=== PATIENT | female | born 1950 | race Caucasian/White ===

== ENCOUNTER 2016-09-15 09:42 | Day surgery (SDC) | payer MEDICARE, OTHER ==
--- NOTE | 2016-09-11 16:44 | PCM.HPSURG ---
Subjective Date of Service: Sep 07, 2016 Referring Provider: Admitting Physician: Primary Care Physician: Dirk Herrera MD Attending Physician: Dirk Ornelas MD Chief Complaint SEE BELOW History of Present Illness Patient: Dulce Persaud Date of : 1950 Visit Type: Pre Op Visit Date: 09/07/2016 01:00 PM This 66 year old female presents for Preop MIS Left L3-4 Hemilami+Microdisc+ Caesar. Decompress. History of Present Illness: 1. Preop MIS Left L3-4 Hemilami+Microdisc+Caesar. Decompress Dulce Persaud is a 66 year old female referred by Primary care Provider (PCP) Dr. Dirk Feliz M.D. who presents today's date 09/07/2016 for a preoperative type of appointment concerning the decision for surgery involving minimally invasive surgery with left L3-4 partial hemilaminectomy, microdiscectomy, & bilateral lateral recess decompression secondary to a diagnosis of lumbar spinal stenosis with neurogenic claudication & radiculopathy with related complaints of severe, intractable, and debilitating lower back pain radiating left > right lower extremities with numbness, paresthesias, & weakness; worse with standing up straight and walking & better leaning forward or sitting down. This patient underwent consultation with Dr. Dirk Ornelas M.D. on 2015 documenting a L3-4 HNP, lumbar canal stenosis, with neurogenic claudication since December 2015. She first developed right leg radicular pain in an L4 and L5 distribution following a long airline fligh 11-15-2015. The right leg pain eased up over 1-2 months with medical management. She developed new problems in late December 2015, low back pain and left anterior thigh pain provoked by walking. She reports local low back pain, with radiations into the hips bilaterally with sitting. Walking causes increased low back pain, left anterior thigh pain, and a feeling of weakness in the legs. Walking is restricted to 1/2 block. She walks with a bent forward posture, leans on the shopping cart at the supermarket, and reports that the back and left leg pain ease up if she can sit for 5-10 minutes. She also gets increases low back pain from lying flat on her back and this eases up if bends her knees by propping pillows under the knees, or turns on her side and curls up. An MRI of the lumbar spine from 06-30-16 shows a large left L3-4 HNP, that tracks above the disk space along the the L3 vertebral body. She has severe spinal stenosis at the L3-4 from the disk and spondylosis. According to Dr. Dirk Ornelas M.D. the patient has disc herniation & spondylosis with symptomatic lumbar spinal stenosis indicating neurosurgical laminectomy, discectomy, & decompression. Dr. Ornelas & the patient discussed all the risks and benefits associated with procedure as well as reasonable expectations with respect to surgical outcomes & patient elected to proceed with surgery as planned. The patient denies any complete or acute loss of control of bowel or bladder function, saddle paresthesia or anesthesia. The patient has a pertinent positive past medical, surgical and social history for ileostomy, left total knee arthroplasty, morbid obesity, thyroid disorder, peripheral edema, nocturia, chronic joint pain, stress incontinence, nocturia, history of ulcerative colitis, & chronic pain management. The patient's related complaints have been a serious detriment to their happiness and activities of daily living. Having failed conservative treatment the patient presents today for their decision for surgery appointment involving minimally invasive surgery with left L3-4 partial hemilaminectomy, microdiscectomy, & bilateral lateral recess decompression for treatment of lumbar spinal stenosis with neurogenic claudication & radiculopathy; related to severe, intractable, and debilitating lower back pain radiating left > right lower extremities with numbness, paresthesias, & weakness; worse with standing up straight and walking & better leaning forward or sitting down. The procedure is scheduled to be performed by Dr. Dirk Ornelas M.D. on 2016. PERIOPERATIVE NOTE: The patient currently undergoing chronic pain management with PCP taking Percocet 5/325 mg 2 tabs every 6 hours. She also has an ileostomy status post resection surgery. We discussed the management of the device she will bring extra bags & we will pad her device appropriately during surgical positioning. The patient is reversed of 2 compression stockings but agrees to use of SCDs for DVT prophylaxis. Medical/Surgical/Interim History Reviewed, no change. Last detailed document date:09/07/2016. Family History: Reviewed, no changes. Last detailed document date:09/07/2016. Social History: Reviewed, no changes. Last detailed document date: 09/07/2016. Allergies: Ingredient Reaction Medication Name Comment WARFARIN SODIUM Rash COUMADIN SULFA (SULFONAMIDE ANTIBIOTICS) Rash LISINOPRIL Anaphylaxis CORTICOSTEROIDS (GLUCOCORTICOIDS) TRIAMTERENE POTASSIUM Potassimin Reviewed, no changes. Review of Systems System Neg/Pos Details MS Positive Back pain. Neuro Negative Dizziness, headache and seizures. Cardio Negative Chest pain, irregular heartbeat/palpitations, leg swelling and pacemaker. GI Negative Abdominal pain, constipation, diarrhea, nausea and vomiting. Psych Negative Anxiety and depression. Endocrine Negative Weight gain and weight loss. MS Negative Bone/joint symptoms and muscle weakness. Respiratory Negative Dyspnea, apnea and wheezing. Eyes Negative Double vision and vision loss. ENMT Negative Hearing loss. Negative Dysuria, urge incontinence and urinary incontinence. Constitutional Negative Chills and fever. Integumentary Negative Mrsa and rash. Rene/Lymph Negative Blood clots. Vital Signs Height Time ft in cm Last Measured Height Position % 1:02 PM 5.0 5.00 165.10 06/11/2015 Weight/BSA/BMI Time lb oz kg Context % BMI kg/m2 BSA m2 1:02 PM 258.40 117.208 dressed with shoes 43.00 2.32 Blood Pressure Time BP mm/Hg Position Side Site Method Cuff Size 1:02 PM 139/85 sitting left wrist automatic adult Temperature/Pulse/Respiration Time Temp F Temp C Temp Site Pulse/min Pattern Resp/ min 1:02 PM 98.9 37.2 77 regular Pain Scale Time Pain Score Method 1:02 PM 7/10 Numeric Pain Intensity Scale Measured By Time Measured by 1:02 PM Nydia Pena MA Physical Exam Exam Findings Details Comments WD/WN, obese female who is AO x 3, cooperative,& appears to be in NAD w/ language & speech that is intact & fluent. There is no evidence of recent or remote memory impairment. The patient's knowledge is appropriate for age & level of education w/ a pleasant affect & euthymic mood. Ambulates w/ no difficulty. NC/AT, PERRL, EOMI, w/o facial droop, hearing grossly intact, nostrils patent, oral cavity and pharynx normal. Neck supple, w/o LAD or thyromegaly. Heart reveals RRR w/o audible murmurs Lungs CTAB Abdomen has ileostomy bag Walks slowly, bent forward Neg Straight Leg Raise, Neg Patricks DTRs 2+ in LEs Motor strength is 4+/5 left heel stand, other motor groups 5/5 in the LEs Sensation is intact in LEs Pitting edema in the LEs Assessment/Plan # Detail Type Description 1. Assessment Lumbar stenosis with neurogenic claudication (M48.06). 2. Assessment Preop examination (Z01.818). Patient Plan We including your Attending Surgeon have discussed the risks and benefits associated your scheduled procedure which you have verbally acknowledged understanding including but not limited to the possibility of an outcome that we are unable to predict or was not mentioned. 1. You are scheduled for a minimally invasive surgery with left L3-4 partial hemilaminectomy, microdiscectomy, & bilateral lateral recess decompression with Dr. Dirk Ornelas M.D. at [facility] on 09/15/2016. 2. Check in time is 10 AM. Also please ignore instructions below if told otherwise by your preadmission nurse or if you do not take the medications listed below. 3. Nothing to eat after midnight the night before surgery. You may take all of your "approved" medications with small sips of water. Remember to take your a.m. hypertension medication if it is a beta angela and ends in "olol. Otherwise ask your doctor if you need to hold your a.m. hypertension medication. 4. No aspirin, ibuprofen, Naprosyn, or other NSAIDs starting 7 days prior to surgery. 5. Please stop Warfarin/Coumadin or other blood thinners such as Plavix, Aggrenox, or Xarelto 7 days prior to your surgical procedure and follow specific instructions from your prescribing provider. 6. Please stop Lovenox bridging in the morning one day prior to procedure. 7. Please stop Suboxone/Buprenorphine at least 4 days prior to procedure. 8. Go to the hospital today to get her preoperative testing done. Take the order form to the surgery desk on the second floor of the hospital, [facility] (main entrance next to the emergency entrance). I will notify you if there is any test results that require further workup prior to surgery. 9. Follow the instructions you were given today, use the cleansing cloths the night before as well as the morning of her surgery. 10. If you are prescribed inhalers, CPAP or BiPAP machines you use at home bring along with you to the hospital. 11. ONLY If you take medications for Diabetes: If you have an insulin pump continue lowest (typically night-time) basal rate into the a.m. If you do not have a pump check h your a.m. blood sugar and hold insulin if BS less than 100. If you are taking long-acting, intermediate acting (NPH) or 70/30 preparation : Take half on day of procedure. If you are taking ultra long-acting insulin such as glargine, Lantus either at night or in the a.m. continue as scheduled ( including day of surgery). If you take short acting regular insulin (insulin not delivered via pump) discontinue on day of procedure. 12. Please call if you have any questions before your surgery: [phone]. Today's instructions/counseling include(s) Pre-operative instructions given to the patient and or legal vendor representatives(s) orally and in writing. 13. Our office will contact you if there are any test results that require further workup prior to surgery. Provider Plan The patient's history and examination as well as radiological findings were reviewed with Dr. Dirk Ornelas M.D. and conveyed the patient in detail. The findings are consistent with [] and are most likely the cause of the patient 's severe, intractable, and debilitating lower back pain radiating left > right lower extremities with numbness, paresthesias, & weakness; worse with standing up straight and walking & better leaning forward or sitting down. The patient has failed extensive conservative treatment for this condition. The treatment options were discussed with the patient. The options include attempt to live with the condition, reattempt conservative treatment, try a pain management intervention / injection or consider a surgical intervention. We are not extremely optimistic that further conservative treatment, pain management intervention and/or injection will adequately resolve the patient's symptoms of severe, intractable, and debilitating lower back pain radiating left > right lower extremities with numbness, paresthesias, & weakness; worse with standing up straight and walking & better leaning forward or sitting down. Therefore we recommend minimally invasive surgery with left L3-4 partial hemilaminectomy, microdiscectomy, & bilateral lateral recess decompression. The patient was provided/offered educational materials pertaining to their diagnosis and the above discussed procedure. We discussed the risks and benefits associated with this surgery. A spine model was used to explain the nature of this type of surgery. The risk of the required anesthesia was also mentioned including but not limited to organ failure such as heart attack, pneumonia and stroke even . The risk of this type of surgery was also mentioned. Including but not limited to an unsuccessful outcome, residual symptoms, referred or radiating posterior spinal myofascial inflammatory pain or spasm, post operative instability, instrumentation failure, sensory changes, blood loss, blood clots, wound infection, spinal cord or nerve damage, CSF or lymph leak, damage to neighboring structures such as the recurrent laryngeal nerve, perforation of the esophagus or trachea, abdominal vasculature, bowel, ureter, and bladder, resulting in temporary or permanent dysfunction, even disability, paralysis, and . The recovery of this type of surgery was also mentioned. There is a 15% chance of recurrent disc herniation with a discectomy. The chances for improvement of the lumbar spinal stenosis related symptomatology at one year is 70-80%. The chances of improvement of local mechanical pain is 50%. The patient verbalized understanding all the risks and benefits, knowing that it is impossible to predict or guarantee every surgical outcome; and would like to proceed with the above discussed procedure anyways. Surgery is scheduled for 09/15/2016 The standard [facility] preoperative screening tests, medicine restrictions, and logistical protocols apply. Any preoperative testing is within normal limits to undergo the above discussed procedure unless otherwise noted in the medical record. PERIOPERATIVE NOTE: The patient currently undergoing chronic pain management with PCP taking Percocet 5/325 mg 2 tabs every 6 hours. She also has an ileostomy status post resection surgery. We discussed the management of the device she will bring extra bags & we will pad her device appropriately during surgical positioning. The patient is reversed of 2 compression stockings but agrees to use of SCDs for DVT prophylaxis. Medications (added, continued or stopped this visit): Start Date Medication Directions Stop Date 08/27/2015 [place] Thyroid 120 mg po qd Chlorophyll 200mg tablet four times a day 09/14/2016 cyclobenzaprine 5 mg tablet take 1-2 tablet by oral route every 8 hours as needed for spasm furosemide 80 mg tablet take 1 tablet by oral route every day hydroxyzine HCl 50 mg tablet take 2 tablets q 3-6 hours 09/13/2015 oxycodone-acetaminophen 5 mg-325 mg tablet take 1 tablet by oral route every 6 hours as needed 09/14/2016 Percocet 10 mg-325 mg tablet take 1 - 2 tablet by oral route every 4 - 6 hours as needed for pain Percocet 5 mg-325 mg tablet take 1 tablet by oral route every 6 hours as needed Vitamin C 1,000 mg tablet 08/27/2015 VITAMIN D3 10,000 po qd Vitamins & Minerals tablet Counseling/Educational Factors: Counseling / educational factors reviewed. Counseling / educational factors reviewed. This is a visit of 60 minutes. 50 minutes were spent counseling. This document may have been created using voice recognition software or other electronic means and may contain inadvertent window trimmer apprentice errors. Provider: Travis MARMOLEJO 09/07/2016 02:33 PM Document generated by: Travis Carrasco 09/07/2016 02:33 PM CC Providers: Dirk Herrera [address] [place] [address]- Dirk Herrera [facility] [place] [address] [address] [place] [address] w [facility]en [facility] i [place] i magdalena s . o r g Allergy Allergies: Coded Allergies: Sulfa (Sulfonamide Antibiotics) (Unverified Allergy, Severe, RASH, 08/29/15 ) lisinopril (Unverified Allergy, Severe, ANAPHYLAXIS, 08/29/15) prednisone (Unverified Allergy, Severe, RASH, ANXIETY, 08/29/15) warfarin (Verified Allergy, Severe, HIVES,RASH, 08/29/15) triamterene (Unverified Allergy, Unknown, UNKNOWN, 08/29/15) TAPE (Verified Adverse Reaction, Intermediate, rash, blisters, 09/02/15) paper taper is better unless on a long time Social History Hx Alcohol Use: No Hx Substance Use: No Hx Tobacco Use: No PMH HEENT History History of ENT Problems?: Yes HEENT History: Positive for:: Sinus Problem (seasonal allergies) TMJ (grinds, no nightguard) Denies:: Cataracts Glaucoma Hearing Problem Other HEENT Pertinent History: dental implants Cardiovascular History History of Heart Problems?: Yes Cardiovascular History: Positive for:: Edema Hypertension Denies:: Chest Pain Heart Murmur Irregular Heartbeat Pacemaker Thrombophlebitis Respiratory History of Respiratory Problem: Yes Respiratory History: Positive for:: Pneumonia (remote hx of) Denies:: Asthma COPD Emphysema Oxygen Administration Tuberculosis Use of C-PAP Machine Use of Inhalers / NEBS Neurological History Hx Neurologic Problems?: No Neurological History: Denies:: CVA Dementia Dizziness Headaches Multiple Sclerosis Parkinson's Disease Seizures Gastrointestinal History HX of GI Problems?: Yes Gastrointestinal History: Positive for:: Gastrointestinal Bleeding Rectal Bleeding (hx of UC) Denies:: Gall Bladder Disease Other GI Pertinent History: hx of ileostomy Genitourinary History Hx of Gu Problems?: Yes Genitourinary History: Denies: HX of Hemodialysis Kidney Stones Urinary Tract Infection Female/Male History Reproductive History Female: Denies: Currently ? Problems with Breasts? Skin History Skin History: Denies:: History Skin Disorders? Pressure Ulcers Musculoskeletal History Hx Musculoskeletal Problems?: Yes Musculoskeletal History: Positive for:: Back Injury (current admission probem) Degenerative Joint Joint Replacement (left total knee) Musculoskeletal Trauma (S/P LT THUMB RPR) Osteoarthritis Psycho Social History Hx of Psycho/Social Problems?: No Psycho Social History: Positive for:: Hx Depression (past hx of) Other History Hx Any Other Health Problems?: Yes Other History: Positive for:: Hospitalization ([facility]RE[facility]SUFFICI[facility]) Thyroid Disease Denies:: Cancer Endocrine Disease Diabetes: No Social History Hx Alcohol Use: NoHx Substance Use: NoHx Tobacco Use: No Smoking Status: Former Smoker Travis Carrasco PA-C Sep 11, 2016 16:44
[2016-09-15] VITALS (11 sets, daily range): BP systolic 140–200; BP diastolic 60–111; PULSE 56–79; RESP 11–20; O2SAT 96–99
[~2016-09-15] VITALS: Ht 165.1 cm; Wt 118.4 kg
[2016-09-15] MEDS: Lactated Ringer's 1,000 ML IV SCH ×5 (05:00→20:49)
--- NOTE | 2016-09-15 08:13 | PCM.HPANE ---
Patient Data Surgeon Admitting Provider: Attending Provider:Dirk Ornelas MD Primary Care Physician:Dirk Herrera MD Other Provider:[facility] [facility] Reason for Visit Spinal Stenosis With Neurogenic Claudication Ht/WT & BMI Height (Feet): 5 Height (Inches): 5 Weight (Kilograms): 117.20 Body Mass Index 43.00 Allergies Coded Allergies: Sulfa (Sulfonamide Antibiotics) (Unverified Allergy, Severe, RASH, 08/29/15 ) lisinopril (Unverified Allergy, Severe, ANAPHYLAXIS, 08/29/15) prednisone (Unverified Allergy, Severe, RASH, ANXIETY, 08/29/15) warfarin (Verified Allergy, Severe, HIVES,RASH, 08/29/15) triamterene (Unverified Allergy, Unknown, UNKNOWN, 08/29/15) TAPE (Verified Adverse Reaction, Intermediate, rash, blisters, 09/02/15) paper taper is better unless on a long time Past Anesthesia History Anesthesia History: Denies:: Abnormal Airway, Anesthesia Reactions, Difficult Intubation, Fam Anesthesia Reaction, Malignant Hyperthermia Diabetes History Hx Diabetes?: No MRSA MRSA: No Medications Hypertension Medication: No Home Meds Incl Beta Darlene: No Reported Medications Triamcinolone Acetonide (Kenalog)100 Gm Aerosol1 Hardesty TP bi-weekly 09/15/16 Potassium Chloride ER 20 Meq Tablet.er20 Meq PO DAILY Ref 0 TAKE WITH FOOD 09/10/16 Hydroxyzine HCl (HydrOXYzine Hcl)50 Mg Jhjspi114 Mg PO Q6H PRN For Itching Ref 0 09/10/16 Furosemide 80 Mg Tab80 Mg PO DAILY 30 Days Ref 0 09/10/16 [chlorophyll] No Conflict Qitlv308 Mg PO QID PRN odor eliminator 09/10/16 Thyroid,Pork (Thida Thyroid)120 Mg Wopkvl214 Mg PO DAILY 09/10/16 oxyCODONE-Acetaminophen 5-325 mg 1 Each Tablet2 Tab PO Q6H PRN For Pain Ref 0 09/10/16 Discontinued Reported Medications Multivitamin-Min/Iron/FA/Vit K (Multi-Day Plus Minerals Tablet)18 Mg Iron-400 Mcg-25 Mcg Tablet1 Each PO DAILY 09/10/16 Hydroxyzine Pamoate (Vistaril)50 Mg [id number] Mg PO QID PRN For Itching Ref 0 08/29/15 Cholecalciferol (Vitamin D3) (Vitamin D)1,000 Unit Uydpky14,000 Unit PO DAILY # 1 BOTTLE Ref 0 08/29/15 Ascorbic Acid (Vitamin C)1,000 Mg Tab.chew1,000 Mg PO DAILY Ref 0 08/29/15 Furosemide (Lasix)20 Mg Ehyyru16 Mg PO DAILY 30 Days Ref 0 08/29/15 [Chlorophyll] No Conflict Girks751 Mg PO QID 08/29/15 Thyroid,Pork (Thida Thyroid)120 Mg Iyucej769 Mg PO DAILY PLEASE VERIFY DOSAGE 08/29/15 Discontinued Scripts oxyCODONE-Acetaminophen 5-325 mg 1 Tab Tablet1-2 Tab PO Q4H PRN For Severe Pain #60 TABLET Prov:Dawit Narayan PA-C 09/04/15 [Aspirin] (Aspirin)325 MG TABLET No Conflict Uaeuw278 Mg PO DAILY #84 TABLET Prov:Dawit Narayan PA-C 09/04/15 History History of ENT Problems?: Yes HEENT History: Positive for:: Sinus Problem (seasonal allergies) TMJ (grinds, no nightguard) Denies:: Abnormal Airway Cataracts Difficult Intubation Glaucoma Hearing Problem Other HEENT Pertinent History: dental implants Hx of Heart Problems?: Yes Cardiovascular History: Positive for:: Edema Hypertension Denies:: Chest Pain Heart Murmur Irregular Heartbeat Pacemaker Thrombophlebitis Hx of Respiratory Problem?: Yes Respiratory History: Positive for:: Pneumonia (remote hx of) Denies:: Asthma COPD Emphysema Oxygen Administration Tuberculosis Use of C-PAP Machine Use of Inhalers / NEBS Hx Neurologic Problems?: No Neurological History: Denies:: CVA Dementia Dizziness Headaches Multiple Sclerosis Parkinson's Disease Seizures Hx of GI Problems?: Yes Gastrointestinal History: Positive for:: Gastrointestinal Bleeding Rectal Bleeding (hx of UC) Denies:: Gall Bladder Disease Other GI Pertinent History: hx of ileostomy Hx of Problems?: Yes Genitourinary History: Denies:: HX of Hemodialysis Kidney Stones Urinary Tract Infection Female Hx: Denies:: Currently Problems with Breasts? Skin History: Denies:: History Skin Disorders? Pressure Ulcers Hx Musculoskeletal Problems?: Yes Musculoskeletal History: Positive for:: Back Injury (current admission probem) Degenerative Joint Joint Replacement (left total knee) Musculoskeletal Trauma (S/P LT THUMB RPR) Osteoarthritis Hx of Psycho/Social Problems?: No Psycho Social History: Positive for:: Hx Depression (past hx of) Hx Surgeries?: Yes (left thumb repair, ileostomy, left total knee) Hx Any Other Health Problems?: Yes Other History: Positive for:: Hospitalization ([facility]RENAL [facility]SUFFICIENCY) Thyroid Disease Denies:: Cancer Endocrine Disease History Blood Transfusions: Positive for:: Accept Blood Products? Denies:: Blood Transfusions Hx Diabetes: No Hx Alcohol Use: NoHx Substance Use: No Smoking Status: Former Smoker Have You Smoked inLast 12 mo: No Stop/Bang Treated for Sleep Apnea?: No Do You Have a CPAP Machine?: No S-Snoring: Do You Snore Loudly: No T-Tired: feel tired, fatigued: Yes O-Obsered: Observed not breath: No P-Blood Pressure: treated: Yes B- Body Mass Index > 35 kg/m2: Yes A- Age over 50: Yes N- Neck Large Circumference: Yes G- Gender Male: No OYSHI Total Score: 5 YOSHI Risk Assessment: High Risk, =/>3 Yes YOSHI Category 2: Yes Risk Assessment Category Category 1A: Patient has history of documented sleep apnea, and HAS NOT received any narcotic, sedative or anesthesia administration during this stay. Category 1B: Patient has history of documented sleep apnea, and HAS received any narcotic , sedative or anesthesia administration during this stay Category 2: Patient has SUSPECTED Obstructive Sleep Apnea, and HAS received any narcotic , sedative or anesthesia administration during this stay. Category 3: Patient has SUSPECTED Obstructive Sleep Apnea and HAS NOT received narcotic, sedative or anesthesia administration during this stay. Category 4: Outpatient in Procedural Areas with known sleep apnea or who screen positive for High Risk via the STOP/BANG questionnaire. Exam Exam General Appearance: Alert, Oriented X3, Cooperative, No Acute Distress HEENT/AIRWAY: MP 2 Lungs: Clear to Auscultation, Normal Air Movement Heart: Exam Unremarkable, Regular Rate/Rhythm, No Murmurs/Rubs/Gallops Plan Impression Patient chart reviewed, patient interviewed and anesthestic plan with risks, benefits, and alternatives discussed, and informed consent obtained. NPO Status: 09/01 0745 ASA Physical Status: ASA3 Severe Disease (BMI 43) Anesthetic Plan: GA (in the prone position) Bene/Risks/Altern/Consents: Yes HP Complete Prior to Induction: Yes Shane Rizzo MD Sep 15, 2016 08:13
[~2016-09-15 09:42] MED LIST: Bacitracin 50,000 unit Inj IRRIGATION ONE; Bupivacaine Liposome 1.3% 20 mL Inj INFILTRATE ONE; CHLOROPHYLL PO; CeFAZolin 2 Gm/50 mL D5W Premix IV ONE; FRSM80T PO; HYDR50TA76 PO; MULT-1093 PO; OXYC1TAB24 PO; POTA-62 PO; THYR120T2 PO; Thrombin Powder 5,000 Unit TOPICAL ONE
[2016-09-15] MEDS ORDERED: HYDROmorphone 2 mg/mL Inj ONE (09:43)
[2016-09-15] MEDS ORDERED: Ketamine 10 mg/mL 20 mL Inj ONE (09:43)
[2016-09-15] MEDS ORDERED: fentaNYL-PF 50 mCg/mL 2 mL Inj ONE (09:43)
[2016-09-15] MEDS ORDERED: TRIA100A TP (10:21)
[2016-09-15] MEDS ORDERED: Thrombin Powder 5,000 Unit TOPICAL ONE ×2 (11:18→12:27)
[2016-09-15] MEDS ORDERED: Bupivacaine Liposome 1.3% 20 mL Inj ONE (11:18)
[2016-09-15] MEDS ORDERED: Bacitracin 50,000 unit Inj ONE (11:18)
[2016-09-15] MEDS ORDERED: Phenylephrine 10,000 mCg/mL Inj IVPUSH PRN (12:25)
[2016-09-15] MEDS ORDERED: Ondansetron 2 mg/mL 2 mL Inj IVPUSH PRN ×3 (12:25→14:50)
[2016-09-15] MEDS ORDERED: Dexamethasone 4 mg/mL Inj IVPUSH PRN (12:25)
[2016-09-15] MEDS ORDERED: EPHEDrine Sulfate 50 mg/mL Inj IVPUSH PRN (12:25)
[2016-09-15] MEDS ORDERED: HYDROmorphone 1 mg/mL Inj IVPUSH PRN ×2 (12:25→14:50)
[2016-09-15] MEDS ORDERED: MetoCLOpramide 5 mg/mL 2 mL Inj IVPUSH PRN (12:25)
[2016-09-15] MEDS ORDERED: Lactated Ringer's 1,000 ML IV SCH (12:25)
[2016-09-15] MEDS ORDERED: Lactated Ringer's 500 ML IV PRN (12:25)
[2016-09-15] MEDS ORDERED: Bacitracin 50,000 unit Inj XX ONE (12:26)
[2016-09-15] MEDS ORDERED: Bupivacaine-MPF 0.5% 30 mL Inj INFILTRATE ONE (12:27)
[2016-09-15] MEDS ORDERED: Gelatin Sponge 12-7 MM TOPICAL ONE (12:27)
--- NOTE | 2016-09-15 13:19 | DRSVH ---
PROCEDURE: X-RAY LUMBAR SPINE, 1 VIEW INDICATIONS: LEFT L3-4 DISCECTOMY/LAMINECTOMY TECHNIQUE: 2 views of the lumbar spine were acquired. COMPARISON: None. FINDINGS: Bones: 5 [id number] vertebrae are present. On AP and lateral spot images obtained in surgery, th ere is a metallic plate overlying the L3-4 disc level posteriorly. Soft tissues: Overlying bowel gas pattern is normal. No suspicious soft tissue calcifications. IMPRESSION: Intraoperative localization imaging with blade at the L3-4 disc level posteriorly. Report was called to Dr. Ornelas in surgery at 1240 hrs. on 09/15/2016. Lateral image was appropriately flaco ed. Dictated by: Roel More M.D. on 09/15/2016 at 13:15 Approved by: Roel More M.D. on 09/15/2016 at 13:17
[2016-09-15] MEDS ORDERED: Lactated Ringer's 1,000 ML IV ONE (13:41)
[2016-09-15] MEDS ORDERED: Bupivacaine Liposome 1.3% 20 mL Inj INFILTRATE ONE (13:48)
[2016-09-15] MEDS ORDERED: Sodium Chloride Bacteriostatic 30 mL Inj INJ ONE (13:49)
[2016-09-15] MEDS: fentaNYL-PF 50 mCg/mL 2 mL Inj IVPUSH PRN ×2 (14:35→15:01)
[2016-09-15] MEDS: Acetaminophen IV 1,000 MG in IV Premix 1 EACH IV SCH ×2 (14:50→20:08)
[2016-09-15] MEDS ORDERED: Senna-Docusate 8.6-50 mg Tablet PO PRN (14:50)
[2016-09-15] MEDS ORDERED: Polyethylene Glycol (PEG) 17 Gm Powder PO PRN (14:50)
[2016-09-15] MEDS ORDERED: Sodium Biphos-Phos 133 mL Enema RECTAL PRN (14:50)
[2016-09-15] MEDS ORDERED: Magnesium Hydroxide 10 mL Oral Concentration PO PRN (14:50)
[2016-09-15] MEDS ORDERED: CHLOROPHYLL PO PRN (14:50)
--- NOTE | 2016-09-15 16:10 | NUR ---
Arrived on Unit Patient arrived on floor in stretcher from PACU in stable condition. Staff transferred patient from stretcher to bed. Dressing CDI. Denies pain and nausea at this time. IV patent. VSS. A&Ox3. Patient bruises very easily. Awaiting pharmacy to verify medications. Patient orientated to call light, bed, and TV. Call light and tray table within reach. Will continue to monitor patient hourly.
[2016-09-15 18:31] LABS: APPEARANCE,URINE HAZY (CLEAR,HAZY); COLOR,URINE YELLOW (YELLOW); OCCULT BLOOD,URINE NEGATIVE (NEGATIVE); PH,URINE 5.5 (5.0-8.0); UROBILINOGEN,URINE NORMAL (NORMAL)
[2016-09-15] MEDS ORDERED: Promethazine Inj 25 MG in 0.9% Sodium Chloride 50 ML IV PRN (19:10)
[2016-09-15] MEDS ORDERED: CeFAZolin Inj 3 GM in Dextrose 5% 50 ML IV ONE (19:25)
--- NOTE | 2016-09-15 20:29 | NUR ---
High blood pressure Pt's blood pressure elevated to 200/111. HR 72bpm Pt c/o a severe headache. No other neuro signs. Pt has equalized strength. Denies numbness Paged media/instructional designer REGGIE nugent blood pressure. Pt receiving IV tylenol for ARCHER and back pain. Care ongoing.
[2016-09-15] MEDS: Senna-Docusate 8.6-50 mg Tablet PO SCH (20:30)
[2016-09-15] MEDS ORDERED: hydrALAZINE 20 mg/mL Inj IV ONE (20:50)
[2016-09-15] MEDS ORDERED: Labetalol 5 mg/mL 4 mL Inj IVPUSH ONE (21:25)
--- NOTE | 2016-09-15 21:51 | OP ---
[address] [address] OPERATIVE REPORT PATIENT: BASILIO BLOUNT : 1950 MR#: [id number] ADMIT: 09/15/2016 JOB ID: [id number] DATE OF SURGERY: 09/15/2016 SURGEON: Dirk Ornelas MD PREOPERATIVE DIAGNOSIS(ES): 1. Lumbar spondylosis. 2. Disk protrusion. 3. Neurogenic claudication. POSTOPERATIVE DIAGNOSIS(ES): 1. Lumbar spondylosis. 2. Disk protrusion. 3. Neurogenic claudication. PROCEDURE: 1. Minimally invasive surgery, left L3-4 partial hemilaminectomy. 2. Bilateral lateral recess decompression. 3. Microdiskectomy. SANITATION WORKER CLEANING MACHINERY: REGGIE Park. ANESTHESIA: General with Dr. Shane Rizzo MD. ESTIMATED BLOOD LOSS: 100 cc. DRAINS: One CHEL. COMPLICATIONS: None. INDICATIONS: This patient presented with neurogenic claudication. She was found to have severe spinal stenosis caused by ligamentous thickening and a free disk fragment that extended above the L3-4 disk space on the left side. PROCEDURE IN DETAIL: This patient was taken to the operating room on September 15, 2016, placed under general anesthesia, placed prone on a Jt frame, prepped and draped sterile. A spinal needle was placed as a marker at the L3-4 level and its position confirmed with the C-arm. The skin was then infiltrated with 0.5% plain Marcaine an a 2 cm incision was placed just to the left of midline at the L3-4 level. The incision was carried down sharply through the skin and subcutaneous tissues and hemostasis was achieved with the monopolar. The skin was infiltrated with 0.5% plain Marcaine prior to the incision. The progressive dilators were then placed, stopping with the lamina of L3. Then, the operating tube measuring 22 mm in diameter and 7 cm in length was placed just to the left of midline at the L3-4 level. It was attached to a connecting arm that was secured to the bed rail. The location of the operating tube was confirmed with a lateral and AP fluoroscopic x-ray confirming the position of the operating tube. The microscope was then brought into position, sliding through the tube. The soft tissue overlying the lamina of L3 was cauterized and the patient had a partial hemilaminectomy of L3, thinning with the high-speed bur and resecting with the Kerrison punch. The patient was noted to have thickened ligamentum flavum that was removed with the Kerrison, exposing the dural sac. The lateral recess of the L4 root was decompressed using the high-speed bur to thin the left L3-4 facet and then undermined with the Kerrison punch. The L4 root was identified and mobilized medially, and the patient was noted to have a free disk fragment just above the L3-4 disk space. The fragment was removed piecemeal. It was a calcified disk protrusion that was removed, decompressing the central canal. The removal of the thickened ligament also decompressed the central canal. It was possible to perform a right lateral recess decompression through this left-sided approach, tunneling to the opposite side, thinning with the high-speed bur and undermining with the Kerrison punch to remove the ligamentum flavum and decompress the lateral recess of the right L4 root. Following the decompression, Gelfoam was left in the partial hemilaminectomy defect. A #10 CHEL drain was placed at the base of the wound and brought out through a separate stab wound and connected to bulb suction. The patient received 40 cc of dilute Exparel, 20 cc were delivered in the deep paraspinous musculature and another 20 cc were delivered in the superficial tissues, the subcutaneous tissues and dermal layer. The subcutaneous tissues were closed with 0 Vicryl and the dermal layer was closed with interrupted sutures of 2-0 Vicryl. Steri-Strips were applied to the skin which was dressed with Telfa gauze and tape.
[2016-09-15] MEDS ORDERED: Labetalol 5 mg/mL 4 mL Inj IVPUSH PRN (21:55)
--- NOTE | 2016-09-15 22:09 | PCM.CHPMED ---
Subjective Date of Service: Sep 15, 2016 Provider requesting consult: Dirk Ornelas MD Primary Physician: Admitting Physician: Primary Care Physician: Dirk Herrera MD Attending Physician: Dirk Ornelas MD Chief Complaint: Chief Complaint: Hypertension History of Present Illness: Patient is a 66 year old female with a history of hypothyroidism, idiopathic edema, and ulcerative colitis s/p colectomy. She presented to [facility] on 09/15/16 for lumbar spine surgery with Dr. Ornelas. The medicine service has been consulted for management of hypertensive urgency with blood pressure of 200/ 111. The patient currently reports a headache. She had some mild dizziness when she arose to use the bathroom. She did not feel as though she would pass out. She denies chest pain and shortness of breath. The patient reports a chronic idiopathic peripheral edema for which she takes Lasix 80 mg daily. She has been off that medication for the last week because she was in too much pain to get up and use the bathroom so often. Review of Systems: Constitutional: Denies: Chills, Fever Eyes: Denies: Blurred Vision ENT: Reports: Membranes Dry, Throat Pain (mild sore throat post-op), Denies: Dysphagia, Hoarseness, Nasal Congestion Neck: Denies: Pain, Swelling Cardiovascular: Reports: Edema (chronic), Denies: Chest Pain, Irregular Heart Rate Respiratory: Denies: Cough, Shortness of Breath Gastrointestinal: Reports: Nausea (mild), Denies: Abdominal Pain, Diarrhea, Vomiting Genitourinary: Reports: No burning or pain with urination, Denies: Dysuria, Hematuria Musculoskeletal: Reports: Back Pain Skin: Denies: Itching, Rash Neurological: Reports: Dizziness (mild), Other (Headache), Denies: Change in LOC, Confusion Psychologic: Denies: Anxiety, Depression Lymphatic: Denies: Adenopathy, Swollen Lymph Nodes in Neck PMH Past Medical History Hypothyroidism Idiopathic peripheral edema Ulcerative colitis Bedside Blood Glucose: 76 Surgical History Left L3-4 partial hemilaminectomy, microdiscectomy, and bilateral recess decompression - 09/15/16 Left total knee arthroplasty August 2015 Ileostomy, colon resection for ulcerative colitis 2004 Left thumb ligament repair 1989 Home Medications Per [facility] (09/07/16): [place] Thyroid 120 mg daily Chlorophyll 200mg tablet four times a day Cyclobenzaprine 5 mg tablet take 1-2 tablet by oral route every 8 hours as needed for spasm Furosemide 80 mg tablet take 1 tablet by oral route every day Hydroxyzine HCl 50 mg tablet take 2 tablets q 3-6 hours Percocet 5/325 mg tablet take 2 tablet by oral route every 6 hours as needed for pain Vitamin C 1,000 mg tablet VITAMIN D3 10,000 po qd Allergies: Coded Allergies: Sulfa (Sulfonamide Antibiotics) (Unverified Allergy, Severe, RASH, 08/29/15 ) lisinopril (Unverified Allergy, Severe, ANAPHYLAXIS, 08/29/15) prednisone (Unverified Allergy, Severe, RASH, ANXIETY, 08/29/15) warfarin (Verified Allergy, Severe, HIVES,RASH, 08/29/15) triamterene (Unverified Allergy, Unknown, UNKNOWN, 08/29/15) TAPE (Verified Adverse Reaction, Intermediate, rash, blisters, 09/02/15) paper taper is better unless on a long time Family History Family History No family history of diabetes, heart disease or hypertension known Social History Hx Alcohol Use: NoHx Substance Use: NoHx Tobacco Use: Yes Smoking Status: Former Smoker (quit 13 years ago; 1/2 PPD for 30+ years) Exam Vital Signs Vital Sign - Last Date Time Temp Pulse Resp B/P Pulse Ox O2 Delivery O2 Flow Rate FiO2 09/15/16 20:19 36.4 72 20 200/111 97 Room Air 09/15/16 15:20 2 General: Alert, Oriented X3, Cooperative, No Acute Distress Head: Normal Eyes: PERRLA, EOMI, Scleral Anicteric Mouth: Mucous Membranes Dry, Other (no oral thrush present) Neck: Supple, No Thyromegaly Chest & Lungs: Clear to auscultation & percussion, No adventitious breath sounds Cardiovascular: Regular Rate/Rhythm, No Murmurs/Rubs/Gallops Abdomen: Non-tender, Non-distended, Soft, Obese, Other (Ostomy present on the right) Genitourinary: [place] Absent Extremities: Edema (b/l LE; moderate, non-pitting) Neurological: Grossly Neurologically Intact, Cranial Nerves 2-12 Intact, Normal Speech Assessment & Plan Assessment Patient is a 66 year old female with a history of hypothyroidism, idiopathic edema, and ulcerative colitis s/p colectomy. She presented to [facility] on 09/15/16 for lumbar spine surgery with Dr. Ornelas. Patient reports no past diagnosis of hypertension. She is obese and has been sedentary due to her low back pain - both of which put her at risk of hypertension. 1. Acute hypertension/hypertensive urgency, present at admission. - Control post-op pain with the medication regimen prescribed by neurosurgery team. - Re-start Lasix 80 mg daily. - IV labetalol with be available 10 mg every ten minutes as needed to bring SBP below 180. Monitor heart rate closely with use of this medication. Max daily dose 300 mg. - Labs ordered and pending to evaluate for reversible cause. Await CBC, CMP. - Decrease rate of IV fluids to 75 ml/hr. Patient already beginning to drink water. If PO intake adequate tomorrow AM, consider d/c fluids altogether. - Recommend outpatient follow up for monitoring of blood pressure. 2. Morbid obesity, BMI 43.3. - Once recovered from surgery recommend patient be counseled about lifestyle changes to promote weight loss. Chronic, stable problems: Hypothyroidism - recommend continuing home dose of armour thyroid. Thank you for the consultation with this patient. We will continue to follow along with you during this admission. Problems: VTE Prophylaxis: SCDs Resuscitation Status: CPR: Attempt Resuscitation Attending Statement The patient was seen and examined together with Dr. Hughes on 09/15 and I agree with the history, exam and plan as outlined in the note above. copies to: Travis Carrasco PA-C; iDrk Herrera MD, Jennifer E DO Sep 15, 2016 20:50 Jaime Akers MD Sep 16, 2016 01:24
[2016-09-15 22:26] LABS: BASOPHILS % (AUTO) 0 % (0-3); EOSINOPHILS % (AUTO) 0 % (0-5); MONOCYTES % (AUTO) 1.2 % (4-12); Mean Corpuscular Hemoglobin 25.5 pg (27.0-35.0); Mean Corpuscular Volume 78.3 fL (81-100); NEUTROPHILS % (AUTO) 88.3 % (40-74); Platelet Count 229 bil/L (150-400)
[2016-09-15 22:44] LABS: Magnesium 1.6 mg/dL (1.6-2.6)
--- NOTE | 2016-09-15 23:48 | NUR ---
Pain Pt has had a ARCHER since surgery Given IV dilaudid for breakthru pain. Pt rates her ARCHER at an 8. Will monitor for pain relief.
[2016-09-16] MEDS: hydrOXYzine Pamoate 25 mg Capsule PO PRN ×3 (00:39→11:39)
[2016-09-16] MEDS: Acetaminophen IV 1,000 MG in IV Premix 1 EACH IV SCH ×2 (02:31→09:02)
--- NOTE | 2016-09-16 05:09 | NUR ---
Puritis Pt is very itchy. She has raised reddened areas along her neck and arms. She states the narcotics and her allergic reaction to her illeostomy appliance is causing this. IV benadyrl given. Paged Travis Carrasco to ask if vistaril could be given early as this is what the pt states she does at home. Pt requested to refrain from itching. Will cont to monitor
[2016-09-16 06:11] VITALS: BP 169/69; PULSE 68; RESP 20; O2SAT 99
--- NOTE | 2016-09-16 07:14 | PCM.ANEP1 ---
Post Anesthesia Phase 1 PACU Phase 1 Assessment Date of Service: Sep 15, 2016 Vital Signs Vital Signs Date Time Temp Pulse Resp B/P Pulse Ox O2 Delivery O2 Flow Rate FiO2 09/16/16 06:11 36.7 68 20 169/69 99 Room Air 09/15/16 23:43 36.7 64 18 177/89 98 Room Air Anesthetic Administered: GA Level of Alertness: Awake, talking GOMEZ's with Equal Strength: Yes Pain: Yes (RN notified) Pain Scale Score: 5 Nausea or Vomiting: No Oxygen Delivery: Nasal Cannula Lungs: Clear to Auscultation, Normal Air Movement Dermatome Level: Full Sensation Shane Rizzo MD Sep 16, 2016 07:14
--- NOTE | 2016-09-16 07:14 | PCM.ANEP2 ---
Post Anesthesia Evaluation ASA/CMS Post Anesthesia VS in Patient's Normal Range?: Yes Resp Stable; Airway Patent?: Yes CV Function & Hydration Stable: Yes Mental Status Recovered?: Yes Pain control Satisfactory?: Yes N/V Control Satisfactory?: Yes Shane Rizzo MD Sep 16, 2016 07:14
[2016-09-16] MEDS: Senna-Docusate 8.6-50 mg Tablet PO SCH (08:30)
[2016-09-16] MEDS: Potassium Chloride 20 mEq SR Tablet PO SCH ×2 (08:30→09:18)
[2016-09-16 09:23] VITALS: BP 146/77; PULSE 69; O2SAT 94
--- NOTE | 2016-09-16 09:23 | PCM.DISURG ---
Surgical Discharge Instruction Date of Service Sep 16, 2016 Dates of Hospitalization Date of Hospital Admission Out patient with a bed status 09/15/2016 Providers Admitting Physician: Primary Care Physician: Dirk Herrera MD Attending Physician: Dirk Ornelas MD Discharge Diagnosis Discharge Diagnosis Status post Minimally invasive surgery involving left L3-4 partial hemilaminectomy, Bilateral lateral recess decompression & Microdiskectomy. Post Operative diagnosis Minimally invasive surgery involving left L3-4 partial hemilaminectomy, Bilateral lateral recess decompression & Microdiskectomy Additional Instructions Discharge Instructions Minimal Invasive Lumbar Spinal Surgical Decompression Instructions What is my recovery like? The hospital stay is usually overnight with discharge the next day. A lumbar brace is worn for comfort only. What are my restrictions? You should not lift anything heavier than five pounds. You should not perform any excessive bending from the waist or twisting movements. Can I Shower? You may shower when you go home. You must remove the outside dressing on the 7th day after surgery, or change as needed if soiled or saturated (replacing new sterile gauze & water proof dressing) otherwise leave alone. The remaining small pieces of tape (steri-strips) directly on top of the incision may get wet. The steri-strips will fall off on their own. Can I drive? No, you should not drive until specifically given permission from your Doctor in a follow up appointment. Most Patient's can drive in 2-3 weeks if they are not taking narcotic pain medications or muscle relaxers. You may ride in a car, but should avoid trips longer than two hours in duration. When can I return work / sports? Your Doctor will discuss your return to work with you on your first postoperative follow-up appointment. Most patients may return to work within 2 weeks for sedentary jobs. More physically demanding jobs may require 3-6 months of healing before such work can be considered. When should I call the doctor? You should call your Doctor or go to the Emergency Department if you develop chest pain, shortness of breath, a temperature greater than 101.5 F, severe uncontrolled pain or weakness, loss of bowel or bladder function, choking, lots or drainage, pus discharge or constipation. Instructions Regarding Comfort & Pain Medication Use: During the recovery period , even with the use of pain medication, you may experience pain at the site of surgery. You may also have the same type of pain you had before surgery. Please use your pain scale as a guide for taking your pain medication. When your pain is greater than 4 out of 10, or when your pain reaches your personal tolerable level of pain, take your pain medication as prescribed. Use your pain medication on an 'as needed' basis. This means if your pain level is within your tolerable level of pain you DO NOT need to take the medication. As you get better, you will notice you can increase the time interval between doses and decrease the number of tablets you are taking, gradually taking less and less pain medication. Taking pain medication when it is not necessary (for example when your pain is tolerable or acceptable) can result in dangerous side effects and over- sedation. Signs and symptoms of over-sedation include: drowsiness, excessive sleeping, slow or difficult breathing, slurred speech, impaired thinking, confusion, impaired motor coordination. If you have any of these symptoms stop taking the medication and immediately contact your doctor. IF SYMPTOMS ARE LIFE THREATENING CALL 911. To decrease pain and swelling, frequently apply an ice pack for 20 min intervals with at least one hour off. When to take Acetaminophen for pain? If you don't have liver problems, allergies and/or Tylenol is not in your current pain medication. Take Extra Strength Tylenol 500mg 2 tabs by mouth every 6 hours as needed for pain. DO NOT EXCEED 8 TABS PER DAY. Additional Instructions Please follow up with your Primary Care Provider for evaluation treatment of your high blood pressure and swelling in your legs. Follow Up Plan Follow Up Plan 1. Please follow up with physician neurology physician assistant in outpatient neurosurgical clinic in 1 week for wound check. 2. Follow-up with your Primary Care Provider for treatment of high blood pressure and swelling in the legs. Follow-up Provider (F9): Travis Carrasco PA-C Additional Information Attending Statement All documentation reviewed & orders authorized by Dr. Dirk Ornelas M.D. Travis Carrasco PA-C Sep 16, 2016 09:23
--- NOTE | 2016-09-16 09:31 | PCM.CHPMED ---
Subjective Date of Service: Sep 16, 2016 Primary Physician: Admitting Physician: Primary Care Physician: Dirk Herrera MD Attending Physician: Dirk Ornelas MD History of Present Illness: Patient is without complaints today. She has been up and down to the bathroom. She did take the morning dose of Lasix today and was given some IV labetalol last night. She has no history of any elevated blood pressures in the past and she does see medical care consistently. She did however recently over at least the past week not take her Lasix as her back pain was getting worse and she did not want to be up and down going to the bathroom. Her blood pressure is markedly improved. PMH Bedside Blood Glucose: 76 Allergies: Coded Allergies: Sulfa (Sulfonamide Antibiotics) (Unverified Allergy, Severe, RASH, 08/29/15 ) lisinopril (Unverified Allergy, Severe, ANAPHYLAXIS, 08/29/15) prednisone (Unverified Allergy, Severe, RASH, ANXIETY, 08/29/15) warfarin (Verified Allergy, Severe, HIVES,RASH, 08/29/15) triamterene (Unverified Allergy, Unknown, UNKNOWN, 08/29/15) TAPE (Verified Adverse Reaction, Intermediate, rash, blisters, 09/02/15) paper taper is better unless on a long time Social History Hx Alcohol Use: NoHx Substance Use: NoHx Tobacco Use: Yes Smoking Status: Former Smoker (quit 13 years ago; 12 PPD for 30+ years) Exam Vital Signs Vital Sign - Last Date Time Temp Pulse Resp B/P Pulse Ox O2 Delivery O2 Flow Rate FiO2 09/16/16 09:23 36.3 69 146/77 94 09/16/16 07:14 Nasal Cannula 09/16/16 06:11 20 09/15/16 15:20 2 Intake and Output 09/15/16 09/15/16 09/16/16 Cumulative From/Thru 15:00 23:00 07:00 09/10/16 11:55 - 09/16/16 06:31 Intake Total 1750 ml 200 ml 1750 ml 3700 ml Output Total 100 ml 830 ml 870 ml 1800 ml Balance 1650 ml -630 ml 880 ml 1900 ml Intake Oral 1000 ml 1000 ml IV Total 1750 ml 200 ml 750 ml 2700 ml Output Urine Total 500 ml 850 ml 1350 ml Stool Total 300 ml 300 ml Drainage Total 30 ml 20 ml 50 ml Estimated Blood Loss 100 ml 100 ml # Voids 2 2 # Bowel Movements 1 1 General: Alert, Oriented X3, No Acute Distress Head: Normal Eyes: PERRLA, EOMI Chest & Lungs: Clear to auscultation & percussion Cardiovascular: Regular Rate/Rhythm, Normal S1, Normal S2, No Murmurs/Rubs/ Gallops Abdomen: Non-tender, Benign, Soft, Obese Extremities: No cyanosis/clubbing/edma bilat Lab and Diagnostics Labs Laboratory Tests 72 Hours Test 09/15/16 18:16 09/15/16 22:17 Urine Color Yellow (YELLOW) Urine Appearance Hazy (CLEAR,HAZY) Urine pH 5.5 (5.0-8.0) Urine Specific [place] 1.025 (1.003-1.035) Urine Protein Negativemg/dL (NEG,TRACE) Urine Glucose (UA) Negativemg/dL (NEGATIVE) Urine Ketones Negativemg/dL (NEGATIVE) Urine Occult Blood Negative (NEGATIVE) Urine Nitrite Negative (NEGATIVE) Urine Bilirubin Negative (NEGATIVE) Urine Urobilinogen Normalmg/dL (NORMAL) Urine Leukocyte Esterase Negative (NEGATIVE) Urine RBC 0-2/hpf (0-2) Urine WBC 0-5/hpf (0-5) Urine Epithelial Cells None/hpf (NONE-MOD) Urine Crystals None seen (NONE SEEN) Urine Bacteria Few/hpf (NONE-FEW) Urine Hyaline Casts None/lpf (NONE) Urine Granular Casts None seen (NONE SEEN) Urine Waxy Casts None seen (NONE SEEN) Urine Red Blood Cell Casts None seen (NONE SEEN) Urine White Blood Cell Casts None seen (NONE SEEN) Urine Mucus Present (None Seen) Urine Trichomonas None seen (NONE SEEN) Urine Yeast None (NONE SEEN) Urinalysis Comment None Urine Culture Reflexed Not indicated White Blood Count 6.5th/mm3 (3.8-10.1) Red Blood Count 4.75mil/mm3 (3.90-5.20) Hemoglobin 12.1g/dL (12.0-15.6) Hematocrit 37.2% (35.0-46.0) Mean Corpuscular Volume 78.3fL (81-100) Mean Corpuscular Hemoglobin 25.5pg (27.0-35.0) Mean Corpuscular Hemoglobin Concent 32.5% (32.0-37.0) Red Cell Distribution Width 14.1% (12.3-15.4) Platelet Count 229bil/L (150-400) Neutrophils (%) (Auto) 88.3% (40-74) Lymphocytes (%) (Auto) 10.0% (14-46) Monocytes (%) (Auto) 1.2% (4-12) Eosinophils (%) (Auto) 0% (0-5) Basophils (%) (Auto) 0% (0-3) Sodium Level 134mEq/L (134-144) Potassium Level 4.8mEq/L (3.5-5.2) Chloride Level 100mEq/L (97-108) Carbon Dioxide Level 22mmol/L (18-29) Blood Urea Nitrogen 15mg/dL (8-27) Creatinine 0.92mg/dL (0.57-1.00) Estimat Glomerular Filtration Rate 87mL/min (>59) Glucose Level 139mg/dL (60-99) Calcium Level 8.8mg/dL (8.5-10.1) Phosphorus Level 3.0mg/dL (2.5-4.9) Magnesium Level 1.6mg/dL (1.6-2.6) Total Bilirubin 0.4mg/dL (0.0-1.2) Aspartate Amino Transf (AST/SGOT) 12U/L (0-50) Alanine Aminotransferase (ALT/SGPT) 9U/L (0-32) Alkaline Phosphatase 70U/L (25-165) Total Protein 7.0g/dL (6.4-8.4) Albumin 3.7g/dL (3.4-5.0) Result Diagram: 09/15/16221609/15/162216 Assessment & Plan Assessment Patient is a 66 year old female with a history of hypothyroidism, idiopathic edema, and ulcerative colitis s/p colectomy. She presented to [facility] on 09/15/16 for lumbar spine surgery with Dr. Ornelas. Patient reports no past diagnosis of hypertension. She is obese and has been sedentary due to her low back pain - both of which put her at risk of hypertension. 1. Acute hypertension/hypertensive urgency, present at admission. - Control post-op pain with the medication regimen prescribed by neurosurgery team. - Re-start Lasix 80 mg daily. - IV labetalol with be available 10 mg every ten minutes as needed to bring SBP below 180. Monitor heart rate closely with use of this medication. Max daily dose 300 mg. - Labs ordered and pending to evaluate for reversible cause. Await CBC, CMP. - Decrease rate of IV fluids to 75 ml/hr. Patient already beginning to drink water. If PO intake adequate tomorrow AM, consider d/c fluids altogether. - Recommend outpatient follow up for monitoring of blood pressure. 2. Morbid obesity, BMI 43.3. - Once recovered from surgery recommend patient be counseled about lifestyle changes to promote weight loss. Chronic, stable problems: Hypothyroidism - recommend continuing home dose of armour thyroid. Thank you for the consultation with this patient. We will continue to follow along with you during this admission. Elevated blood pressure last night with mild headache currently better controlled with restarting Lasix and dose of IV labetalol. I think this occurred postoperatively and also contributing factor was her not taking her Lasix regularly. From our perspective she is fine to go home if okay with neurosurgery. We will follow along with you for her hospital course here. Problems: VTE Prophylaxis: SCDs VTE Mechanical Devices: Intermittant Pneumatic CD Resuscitation Status: CPR: Attempt Resuscitation Time spent 30 minutes Meghann Contreras MD Sep 16, 2016 09:31
--- NOTE | 2016-09-16 09:34 | PCM.DC.SUR ---
Discharge Summary Date of Service: Sep 16, 2016 Date of Hospital Admission: Outpatient with a bed status 09/15/2016 Date of Operation(s): 09/15/2016 Date of Discharge: 09/16/2016 Diagnosis at Time of Discharge Status post Minimally invasive surgery involving left L3-4 partial hemilaminectomy, Bilateral lateral recess decompression & Microdiskectomy Problems: Operation Minimally invasive surgery involving left L3-4 partial hemilaminectomy, Bilateral lateral recess decompression & Microdiskectomy Brief History and Physical: Patient is a 66 year old female with a history of hypothyroidism, idiopathic edema, and ulcerative colitis s/p colectomy. She presented to [facility] on 09/15/16 for lumbar spine surgery with Dr. Ornelas. The medicine service has been consulted for management of hypertensive urgency with blood pressure of 200/ 111. The patient currently reports a headache. She had some mild dizziness when she arose to use the bathroom. She did not feel as though she would pass out. She denies chest pain and shortness of breath. The patient reports a chronic idiopathic peripheral edema for which she takes Lasix 80 mg daily. She has been off that medication for the last week because she was in too much pain to get up and use the bathroom so often. Hospital Course: Hospital Course: The patient was admitted through same day surgery and subsequently underwent a Minimally invasive surgery involving left L3-4 partial hemilaminectomy, Bilateral lateral recess decompression & Microdiskectomy. The patient tolerated the procedure well. The patient was then was transferred to PACU and then to the OSC floor. The patient was admitted for postoperative pain control, PT/OT, supervised for morbid obesity, acute postoperative hypertension, headache , nausea, ileostomy bag, etc. Co-morbidities with Hospitalist Consultation for hypertension & medical clearance for stable discharge home, continued nurse monitoring, continuous pulse oximetry, and discharge planning. The Patient's overnight course was much improved after anti-medic for nausea. Hydralazine & labetalol given authorized by Hospitalist for hypertension. Currently the patient has complaints of mild headache & minimal surgical site pain. There is significant improvement of the patient's residual lumbar spinal stenosis related symptoms with regards to her lower extremities. Imitrex given for headache. The patient denies headache, severe sore throat or dysphagia, chest pain, shortness of breath, abdominal pain, nausea, vomiting, constipation, diarrhea, or any new onset &/or location of pain, weakness or paresthesias aside from the surgical site. PHYSICAL EXAM This is a well developed, well nourished, morbidly obese female who is alert, cooperative, and appears to be in no acute distress with a pleasant affect & euthymic mood. Exam of the head is normocephalic. PERRL, EOMI, without facial droop, hearing grossly intact, nostrils patent, oral cavity and pharynx normal. Voice is within normal limits Exam or the heart reveals regular rate and rhythm without audible murmurs The lungs are clear to auscultation bilaterally. The abdomen is obese, non- tender, and non-distended. Exam of the lumbar surgical wound reveals that it is clean, dry, and intact; without signs of infection, inflammation, and/or hematoma. There is less than 30 mL output from surgical drain in the last 8 hour period. Gross exam of the extremities reveals strength & sensation are grossly intact within the patient's normal baseline limits except improve diminished sensation bilateral lower extremities with standing. The patient was eventually able to get out of bed and ambulate within acceptable limits. Therapy services made recommendations for disposition. Flatus was appreciated and the patient was able to void without significant difficulty. The pain was gradually under control. The patient was afebrile on discharge. The patient's incision(s) was clean, dry and intact. The dressing was changed to the Surgeon's specifications. The output from the wound drain was less then 30cc's in an 8 hour period at discharge and therefore the drain was removed. The patient progressed well with rehabilitation and was subsequently discharged to home in stable condition. The patient was also encouraged after Hospitalist medical clearance for discharge to follow up with her PCP regarding her hypertension & peripheral edema. The patient verbally affirmed understanding when given clear instruction regarding the postoperative care and follow-up including but not limited to seeking immediate medical attention for chest pain, shortness of breath, a temperature greater than 101.5 F, severe uncontrolled pain or weakness, loss of bowel or bladder function, choking, lots or drainage, pus discharge or constipation. All questions were answered. Disposition: Home in stable neurosurgical condition & medical condition after Hospitalists authorization for discharge. ([chlorophyll]) 200 MG PO QID PRN PRN odor eliminator (Reported) Furosemide (Furosemide) 80 Mg Tab 80 MG PO DAILY (Reported) Hydroxyzine HCl (HydrOXYzine Hcl) 50 Mg Tablet 100 MG PO Q6H PRN PRN For Itching (Reported) Potassium Chloride ER (Potassium Chloride ER) 20 Meq Tablet.er 20 MEQ PO DAILY ( Reported) TAKE WITH FOOD Thyroid,Pork ([place] Thyroid) 120 Mg Tablet 120 MG PO DAILY (Reported) Triamcinolone Acetonide (Kenalog) 100 Gm Aerosol 1 SPRAY TP bi-weekly (Reported ) oxyCODONE-Acetaminophen 5-325 mg (oxyCODONE-Acetaminophen 5-325 mg) 1 Each Tablet 2 TAB PO Q6H PRN PRN For Pain (Reported) Discharge Medications: Prescribed during the patient's preoperative appointment. Attending Statement: All documentation reviewed and percent orders authorized by Dr. Dirk Ornelas M.D. copies to: Dirk Herrera MD, Scott PA-C Sep 16, 2016 09:34
--- NOTE | 2016-09-16 10:40 | NUR ---
Dressings change / CHEL Low back dressing changed. Seristrips in tact no drainage. Nonstick gauze and Bioclusive placed back over inc as directed by . CHEL drain pulled with no issues. dry gauze and Hypafix tape placed over CHEL incision. Care continues
--- NOTE | 2016-09-16 11:19 | NUR ---
Social Work Initial Assessment/Discharge: SW met with patient at bedside to discuss discharge plan. Order for discharge acknowledged. Patient is a 66 year old male admitted under [facility] for spinal stenosis with neurogenic Claudica. Patient payer as Medicare and [employer]. Patient PCP as MD Herrera. Patient resides with son in [place], [place]. Patient cares for [place] son. Patient states pharmacy of choice as [facility]. Patient has no previous HHC or SNF histroy. Patient has a walker for use at home. Patient has no AD and declined completion of form at this time. Patient states being independent with needs and states that friend/neighbor Padmini to provide transport home today and check in and to assist with care needs at home. Patient denied any discharge needs at this time. SW to follow. PLAN: Home with son and transport via neighbor POV, pending clinical course. No anticipated discharge needs at this time. SW to follow. William DANGELO Addendum: 09/16/16 at 1127 by SMILEY ADAMES Amended: Links added. Addendum: 09/16/16 at 1309 by SMILEY ADAMES RADHIKA contacted patient friend Rona, to discuss transport arrangements home. RADHIKA was advised to contact Padmini, who will be picking patient up for transfer home. RADHIKA contacted Padmini who states that she will be picking patient up today but she is currently in [place] undergoing sleep study. RADHIKA inquired about possible time for picked edge sewing machine operator, possible 2-3pm. SW to contact Padmini back around time, to determine possible transport picked edge sewing machine operator time if family not available by then. Rep states that patient has a priority pass and no ferry pass needed. RADHIKA to follow. William DANGELO
[2016-09-16] MEDS: Lactated Ringer's 1,000 ML IV SCH (12:09)
[2016-09-16 13:33] VITALS: BP 178/89; PULSE 70; RESP 18; O2SAT 92
--- NOTE | 2016-09-16 13:50 | NUR ---
Evaluation completed. Please go to "Notes" then click on "Assessments and Notes" (bottom left corner of screen). Then select appropriate discipline tab on top of screen.
[2016-09-16 15:30] VITALS: BP 153/78
[2016-09-18] MEDS ORDERED: TRIAMCINOLONE TOPICAL SCH (19:30)
[2016-12-02] MEDS ORDERED: MULT-1093 PO (11:49)
[2016-12-02] MEDS ORDERED: CHLOROPHYLL (11:49)
[2016-12-02] MEDS ORDERED: HYDR50TA76 PO (11:49)
[2016-12-02] MEDS ORDERED: FRSM80T PO (11:49)
[2016-12-02] MEDS ORDERED: GABA-500 PO (11:49)
[2016-12-02] MEDS ORDERED: OXYC-466 PO (11:49)
[2016-12-02] MEDS ORDERED: THYR120T2 PO (11:49)
== END 2016-09-16 17:24 | disposition home or self-care (01) ==
LOC: SAS 09:42 → OSC 16:29 → SAS 09-16 17:24
PROVIDERS: ATTEND Neurological Surgery
DX: M48.06 Spinal stenosis, lumbar region (principal); M51.26 Other intervertebral disc displacement, lumbar region; G95.19 Other vascular myelopathies; M54.16 Radiculopathy, lumbar region; I10 Essential (primary) hypertension; G89.29 Other chronic pain; N39.3 Stress incontinence (female) (male); E66.01 Morbid (severe) obesity due to excess calories; Z96.652 Presence of left artificial knee joint; Z93.2 Ileostomy status; Z68.41 Body mass index [BMI] 40.0-44.9, adult; Z87.891 Personal history of nicotine dependence
CPT/HCPCS: 36415; 63030; 72020; 76000; 80053; 81000; 83735; 84100; 85025; 94640; 97161; J0131; J0690; J1170; J1200; J2175; J2250; J3010; J7120; Q0177

== ENCOUNTER 2016-12-07 09:11 | Inpatient (IN) | payer MEDICARE, OTHER ==
[2016-12-07] VITALS (16 sets, daily range): BP systolic 95–173; BP diastolic 53–98; PULSE 64–71; RESP 11–18; O2SAT 94–98
[~2016-12-07] VITALS: Ht 170.2 cm; Wt 118.6 kg
[~2016-12-07 09:11] MED LIST changes: -Bacitracin 50,000 unit Inj IRRIGATION ONE; -Bupivacaine Liposome 1.3% 20 mL Inj INFILTRATE ONE; +CHLOROPHYLL; -CHLOROPHYLL PO; -CeFAZolin 2 Gm/50 mL D5W Premix IV ONE; +CeFAZolin Inj 3 GM in IV Premix 1 EACH IV ONE; +GABA-500 PO; +OXYC-466 PO; -OXYC1TAB24 PO; -POTA-62 PO; -Thrombin Powder 5,000 Unit TOPICAL ONE; +Vancomycin Inj 1,750 MG in 0.9% Sodium Chloride 500 ML IV ONE
[2016-12-07] MEDS ORDERED: Lactated Ringer's 1,000 ML IV ONE (09:14)
--- NOTE | 2016-12-07 09:59 | PCM.HPANE ---
Patient Data Surgeon Admitting Provider: Attending Provider:Dileep Obrien MD Primary Care Physician:Dirk Herrera MD Other Provider:Assoc,[facility] Anest[facility] Reason for Visit Right Knee Arthritis Ht/WT & BMI Height (Feet): 5 Height (Inches): 7.00 Weight (Kilograms): 118.600 Body Mass Index 41.00 Allergies Coded Allergies: Sulfa (Sulfonamide Antibiotics) (Unverified Allergy, Severe, anaphylaxis, 12/03/16) lisinopril (Unverified Allergy, Severe, ANAPHYLAXIS, 08/29/15) prednisone (Unverified Allergy, Severe, RASH, ANXIETY, 08/29/15) warfarin (Verified Allergy, Severe, HIVES,RASH, 08/29/15) triamterene (Unverified Allergy, Unknown, UNKNOWN, 08/29/15) TAPE (Verified Adverse Reaction, Intermediate, rash, blisters, 09/02/15) paper taper is better unless on a long time Past Anesthesia History Anesthesia History: Denies:: Abnormal Airway, Anesthesia Reactions, Difficult Intubation, Fam Anesthesia Reaction, Malignant Hyperthermia Diabetes History Hx Diabetes?: No MRSA MRSA: No Medications Hypertension Medication: Yes Home Meds Incl Beta Darlene: No Reported Medications oxyCODONE-Acetaminophen 10-325 mg 1 Each Tablet0.5-1 Tablet PO Q6H PRN For Pain Ref 0 12/02/16 Hydroxyzine HCl (HydrOXYzine Hcl)50 Mg [id number] Mg PO q3-6h PRN For Itching Ref 0 12/02/16 Gabapentin 100 Mg [id number] Mg PO 5xdaily 30 Days Ref 0 12/02/16 Furosemide 80 Mg Tab80 Mg PO DAILY 30 Days Ref 0 12/02/16 [chlorophyll] No Conflict Hhsqy664 Mg QID 12/02/16 Thyroid,Pork ([place] Thyroid)120 Mg Oclaky724 Mg PO DAILY 12/02/16 Discontinued Reported Medications Multivitamin-Min/Iron/FA/Vit K (Multi-Day Plus Minerals Tablet)18 Mg Iron-400 Mcg-25 Mcg Tablet1 Each PO DAILY 12/02/16 Triamcinolone Acetonide (Kenalog)100 Gm Aerosol1 [place] TP bi-weekly 09/15/16 Potassium Chloride ER 20 Meq Tablet.er20 Meq PO DAILY Ref 0 TAKE WITH FOOD 09/10/16 Hydroxyzine HCl (HydrOXYzine Hcl)50 Mg Ysdjxb018 Mg PO Q6H PRN For Itching Ref 0 09/10/16 Furosemide 80 Mg Tab80 Mg PO DAILY 30 Days Ref 0 09/10/16 [chlorophyll] No Conflict Rqrma062 Mg PO QID PRN odor eliminator 09/10/16 Thyroid,Pork ([place] Thyroid)120 Mg Jbutbb281 Mg PO DAILY 09/10/16 oxyCODONE-Acetaminophen 5-325 mg 1 Each Tablet2 Tab PO Q6H PRN For Pain Ref 0 09/10/16 History History of ENT Problems?: Yes HEENT History: Positive for:: Sinus Problem (seasonal allergies) TMJ (grinds, no nightguard) Denies:: Abnormal Airway Cataracts Difficult Intubation Glaucoma Hearing Problem Denture Type: None Teeth Condition: Within Normal Limits Other HEENT Pertinent History: dental implants Hx of Heart Problems?: Yes Cardiovascular History: Positive for:: Edema Hypertension Denies:: Chest Pain Heart Murmur Irregular Heartbeat Pacemaker Thrombophlebitis Hx of Respiratory Problem?: Yes Respiratory History: Positive for:: Pneumonia (remote hx of) Denies:: Asthma COPD Emphysema Oxygen Administration Tuberculosis Use of C-PAP Machine Use of Inhalers / NEBS Hx Neurologic Problems?: No Neurological History: Denies:: CVA Dementia Dizziness Headaches Multiple Sclerosis Parkinson's Disease Seizures Hx of GI Problems?: Yes Hx of Problems?: Yes Genitourinary History: Denies:: HX of Hemodialysis Kidney Stones Urinary Tract Infection Female Hx: Denies:: Currently Problems with Breasts? Skin History: Denies:: History Skin Disorders? Pressure Ulcers Hx Musculoskeletal Problems?: Yes Musculoskeletal History: Positive for:: Back Injury (L3-4 trudi sosa Aug 2016) Degenerative Joint Joint Replacement (left total knee) Musculoskeletal Trauma (right knee current admission problem) Osteoarthritis Denies:: Fibromyalgia Hx of Psycho/Social Problems?: No Psycho Social History: Positive for:: Hx Depression (past hx of) Hx Surgeries?: Yes (left thumb repair, ileostomy, left total knee, L) Hx Any Other Health Problems?: Yes Other History: Positive for:: Hospitalization ([facility]) Thyroid Disease Denies:: Cancer Endocrine Disease History Blood Transfusions: Positive for:: Accept Blood Products? Denies:: Blood Transfusions Hx Diabetes: No Hx Alcohol Use: NoHx Substance Use: No Smoking Status: Former Smoker Have You Smoked inLast 12 mo: No Stop/Bang S-Snoring: Do You Snore Loudly: No T-Tired: feel tired, fatigued: No O-Obsered: Observed not breath: No P-Blood Pressure: treated: No B- Body Mass Index > 35 kg/m2: Yes A- Age over 50: Yes N- Neck Large Circumference: Yes G- Gender Male: No YOSHI Total Score: 3 Risk Assessment Category Category 1A: Patient has history of documented sleep apnea, and HAS NOT received any narcotic, sedative or anesthesia administration during this stay. Category 1B: Patient has history of documented sleep apnea, and HAS received any narcotic , sedative or anesthesia administration during this stay Category 2: Patient has SUSPECTED Obstructive Sleep Apnea, and HAS received any narcotic , sedative or anesthesia administration during this stay. Category 3: Patient has SUSPECTED Obstructive Sleep Apnea and HAS NOT received narcotic, sedative or anesthesia administration during this stay. Category 4: Outpatient in Procedural Areas with known sleep apnea or who screen positive for High Risk via the STOP/BANG questionnaire. Exam Exam Vital Signs Vital Signs Date Time Temp Pulse Resp B/P Pulse Ox O2 Delivery O2 Flow Rate FiO2 12/07/16 09:30 164/98 12/07/16 09:26 36.6 66 16 98 Room Air General Appearance: Alert, Oriented X3, Cooperative, No Acute Distress HEENT/AIRWAY: MP 2 Lungs: Normal Air Movement Heart: Regular Rate/Rhythm Meds/Labs/Diagnostics Admission Meds Current Medications Lactated Ringer's (Lr) 1,000 ml @ ud STK-MED ONCE IV Last administered on 12/07t 09:14; Start 12/07/16 at 09:14; Stop 12/07/16 at 09:15; Status DC Plan Impression Patient chart reviewed, patient interviewed and anesthestic plan with risks, benefits, and alternatives discussed, and informed consent obtained. ASA Physical Status: ASA2 Mod Systemic Disease Anesthetic Plan: Regional Block, SAB Bene/Risks/Altern/Consents: Yes HP Complete Prior to Induction: Yes Liudmila Reid DO Dec 07, 2016 09:59
[2016-12-07] MEDS ORDERED: 0.9% Sodium Chloride 100 ML ONE (10:54)
[2016-12-07] MEDS ORDERED: Tranexamic Acid 100 mg/mL 10 mL Inj ONE (10:54)
[2016-12-07] MEDS ORDERED: Lactated Ringer's 1,000 ML IV SCH (10:57)
[2016-12-07] MEDS ORDERED: Lactated Ringer's 500 ML IV PRN (10:57)
[2016-12-07] MEDS ORDERED: HYDROmorphone 1 mg/mL Inj IVPUSH PRN (11:00)
[2016-12-07] MEDS ORDERED: MetoCLOpramide 5 mg/mL 2 mL Inj IVPUSH PRN (11:00)
[2016-12-07] MEDS ORDERED: Ondansetron 2 mg/mL 2 mL Inj IVPUSH PRN (11:00)
[2016-12-07] MEDS ORDERED: Phenylephrine 10,000 mCg/mL Inj IVPUSH PRN (11:00)
[2016-12-07] MEDS ORDERED: fentaNYL-PF 50 mCg/mL 2 mL Inj IVPUSH PRN (11:00)
[2016-12-07] MEDS ORDERED: EPHEDrine Sulfate 50 mg/mL Inj IVPUSH PRN (11:00)
[2016-12-07] MEDS ORDERED: Bupivacaine-MPF 0.25%/EPI 30 mL Inj INFILTRATE ONE (11:45)
[2016-12-07] MEDS ORDERED: Gentamicin 40 mg/mL 2 mL Inj IRRIGATION ONE (11:45)
[2016-12-07] MEDS ORDERED: Bupivacaine-MPF 0.25%/EPI 30 mL Inj INJ ONE (12:40)
--- NOTE | 2016-12-07 13:30 | DRSVH ---
PROCEDURE: X-RAY RIGHT KNEE, ONE OR TWO VIEWS ([id number]) INDICATIONS: POST OP TECHNIQUE: 2 view(s) of the knee acquired. COMPARISON: [facility], CR, XR KNEE ARTHRITIC SERIES RT, 11/19/2016, 13:14. [facility], CR, XR KNEE 1 OR 2VW LT, 11/26/2015, 14:45. FINDINGS: Bones: Patient is status post knee joint arthroplasty. Hardware components are in expected position s. Visualized bony structures are intact. No periprosthetic fractures or lucencies are evident. Soft tissues: Overlying postoperative changes are noted. Drainage catheter is noted. No unexpected radiopaque foreign bodies are evident. IMPRESSION: Interval total right knee arthroplasty. No fractures. Dictated by: Teodoro Guerrier M.D. on 12/07/2016 at 12:28 Approved by: Teodoro Guerrier M.D. on 12/07/2016 at 12:29
[2016-12-07] MEDS ORDERED: fentaNYL-PF 50 mCg/mL 2 mL Inj ONE (14:18)
[2016-12-07] MEDS ORDERED: Propofol 10,000 mCg/mL 20 mL Inj ONE (14:18)
[2016-12-07 14:30] LABS: APPEARANCE,URINE HAZY (CLEAR,HAZY); COLOR,URINE YELLOW (YELLOW); OCCULT BLOOD,URINE NEGATIVE (NEGATIVE); UROBILINOGEN,URINE NORMAL (NORMAL)
[2016-12-07] MEDS: Lactated Ringer's 1,000 ML IV SCH (14:55)
[2016-12-07] MEDS ORDERED: Ondansetron 2 mg/mL 2 mL Inj IV PRN (14:55)
[2016-12-07] MEDS ORDERED: Alum-Mag Hydrox-Simeth 30 mL Suspension PO PRN (14:55)
[2016-12-07] MEDS ORDERED: MetoCLOpramide 5 mg/mL 2 mL Inj IV PRN (14:55)
[2016-12-07] MEDS ORDERED: diphenhydrAMINE 25 mg Capsule PO PRN (14:55)
[2016-12-07] MEDS ORDERED: HYDROcodone-APAP 5-325 mg Tablet PO PRN (14:55)
[2016-12-07] MEDS ORDERED: Magnesium Hydroxide 10 mL Oral Concentration PO PRN (14:55)
[2016-12-07] MEDS ORDERED: Sodium Biphos-Phos 133 mL Enema RECTAL PRN (14:55)
[2016-12-07] MEDS ORDERED: hydrOXYzine Pamoate 25 mg Capsule PO PRN (14:55)
--- NOTE | 2016-12-07 15:00 | NUR ---
POST-OP Patient received from PACU via a hospital bed. IVF ongoing. Dressing on her R Knee is CDI. Hemovac in in place and clamped at this time. Hemovac to be unclamped at 1730. IFC intact and draining to bhavya colored UO. BLE numbness due to spinal anesthesia. Patient refused SCD's. Oriented to room and call light.
[2016-12-07] MEDS: oxyCODONE-Acetamin 5-325 mg Tablet PO PRN ×2 (15:12→20:38)
[2016-12-07] MEDS: Sodium Chloride LOK Flush 10 mL Syringe IV SCH (16:11)
[2016-12-07] MEDS: Ketorolac 15 mg/mL Inj IV SCH ×2 (16:53→22:53)
[2016-12-07] MEDS ORDERED: GABA-500 PO ×2 (17:38)
[2016-12-07] MEDS ORDERED: POTA-62 PO (17:48)
[2016-12-07] MEDS ORDERED: Vancomycin Inj 1,250 MG in 0.9% Sodium Chloride 250 ML IV ONE (19:00)
[2016-12-07] MEDS: Acetaminophen IV 1,000 mg IV SCH (20:27)
[2016-12-07] MEDS: CeFAZolin Inj 2 GM in IV Premix 1 EACH IV SCH (20:39)
--- NOTE | 2016-12-07 23:02 | OP ---
[address] [address] OPERATIVE REPORT PATIENT: BASILIO BLOUNT : 1950 MR#: [id number] ADMIT: 12/07/2016 JOB ID: [id number] DATE OF SURGERY: 12/07/2016 PREOPERATIVE DIAGNOSIS(ES): Severe osteoarthritis, right knee. POSTOPERATIVE DIAGNOSIS(ES): Severe osteoarthritis, right knee. PROCEDURE: Right total knee replacement. SURGEON: Dileep Obrien MD. SENIOR CORPORATE ACCOUNTANT: Linn Davenport PA-C. COMPLICATIONS: None. INDICATIONS FOR SENIOR CORPORATE ACCOUNTANT: Required due to the complexity of the operation. INDICATIONS: This woman has failed conservative management. Has advanced arthritis of her knee. She is pleased with results with contralateral total knee and requests proceeding with a total knee arthroplasty. She understands and accepts the potential for risks and complications which include but are not limited to infection, thromboembolic, neurovascular events, as well as potential for implant failure. Understanding this, she wishes to proceed. DESCRIPTION OF PROCEDURE: The patient was prepped and draped in usual sterile fashion. An anteromedial approach was made. Dissection was carried down. The patella was subluxed laterally, cut transversely, sized to a 32 of patellar flexion. Protection plate was utilized. Following this, the 5 degree valgus distal femoral cut was made utilizing the knee femoral intraosseous guide. Bone fragments were removed. The femur was sized to a 6 chamfer cutting block, fixed in appropriate position. Rotation and drill holes and chamfer cuts were made. Tibia was cut with the extramedullary tool sized to a D component. All meniscal tissue and osteophytes were removed. Trial reduction was performed and a 10 mm polyethylene produced excellent tracking, soft tissue tension and balance. Following this, pressurized lavage was utilized followed by pressurized cementation of the components. Excess cement was removed during the curing process, and the final construct was assembled. Tourniquet was let down. Hemostasis achieved. The wounds were lavaged with dilute Betadine solution. Deep Hemovac drain was left. Closure was performed with #2 Quill deep followed by 2-0 Vicryl, 3-0, and a 4-0 intracuticular stitch. Patient tolerated the procedure well. There were no complications. Was taken to Recovery in stable condition after sterile dressing had been applied.
[2016-12-08 00:25] VITALS: BP 150/83; PULSE 63; RESP 18; O2SAT 94
[2016-12-08] MEDS: Sodium Chloride LOK Flush 10 mL Syringe IV SCH ×3 (00:30→16:30)
[2016-12-08] MEDS: oxyCODONE-Acetamin 5-325 mg Tablet PO PRN ×3 (00:57→23:42)
[2016-12-08] MEDS: Acetaminophen IV 1,000 mg IV SCH ×3 (01:30→16:25)
[2016-12-08] MEDS: CeFAZolin Inj 2 GM in IV Premix 1 EACH IV SCH (04:08)
[2016-12-08] MEDS: Ketorolac 15 mg/mL Inj IV SCH (04:09)
[2016-12-08] MEDS: hydrOXYzine Pamoate 25 mg Capsule PO PRN ×6 (05:49→21:44)
[2016-12-08 05:53] VITALS: BP 168/86; PULSE 60; RESP 18; O2SAT 98
--- NOTE | 2016-12-08 06:02 | NUR ---
Pain At beginning of shift, pt reporting pain to be 9-10/10 and at home the pt was taking up to 20 mg Oxycodone so here pt has been receiving 2 tabs of Percocet 5/325 mg intermittently with 2 tabs of Oxycodone 10 mg. Morphine 2mg IV given for breakthrough pain x2. Pt also received scheduled Tylenol and Tordal. Pain has been down to 6-7/10 currently. [place] patent and draining. Hemovac intact. SURENDRA wrap dressing is CDI. Orthos intact. Pt tolerating general diet so far. Pt refusing the SCDS.
[2016-12-08 06:16] LABS: BASOPHILS % (AUTO) 0.1 % (0-3); EOSINOPHILS % (AUTO) 0 % (0-5); MONOCYTES % (AUTO) 6.7 % (4-12); Mean Corpuscular Hemoglobin 25.4 pg (27.0-35.0); Mean Corpuscular Volume 76.9 fL (81-100); NEUTROPHILS % (AUTO) 81.6 % (40-74); Platelet Count 226 bil/L (150-400)
[2016-12-08] MEDS: Lactated Ringer's 1,000 ML IV SCH (07:35)
--- NOTE | 2016-12-08 08:29 | PCM.PNORTH ---
Subjective Date of Service: Dec 08, 2016 Visit Information: Reason for Visit Right Knee Arthritis Surgery/Surgery Date R TKA 12/07/16 Post-Op Day # 1 Date of Admission: Dec 07, 2016 at 14:17 Hospital Day # Subjective Patient states she has been having discomfort since that a.m. She states she is having spasms in her back and leg and has had quite a bit of discomfort. She expressed concerns regarding her furosemide and allen. She is hoping to keep it in for one more day. Patient is idiopathic edema that she is being treated with with furosemide. Patient states because of her idiopathic edema she is unable to wear compression stockings or anything tight on her lower legs. Patient states her perioperative dressings were loosened throughout the night because she was having discomfort from the Balta wrap. Postop General: No Complaints, No Shortness of Breath, No Chest Pain Pain Management: PO, IV Push Objective Exam Objective Patient is laying in bed Vital Signs and I/O Vital Sign - Last Date Time Temp Pulse Resp B/P Pulse Ox O2 Delivery O2 Flow Rate FiO2 12/08/16 05:53 36.4 60 18 168/86 98 Room Air Intake and Output 12/07/16 12/07/16 12/08/16 Cumulative From/Thru 15:00 23:00 07:00 12/02/16 11:29 - 12/08/16 06:38 Intake Total 1600 ml 1000 ml 1452 ml 4052 ml Output Total 365 ml 750 ml 990 ml 2105 ml Balance 1235 ml 250 ml 462 ml 1947 ml Intake Oral 1000 ml 700 ml 1700 ml IV Total 1600 ml 752 ml 2352 ml Output Urine Total 315 ml 700 ml 700 ml 1715 ml Stool Total 50 ml 50 ml 100 ml Drainage Total 0 ml 240 ml 240 ml Estimated Blood Loss 50 ml 50 ml Lab & Micro Results Laboratory Tests Test 12/07/16 14:08 12/08/16 06:05 Urine Color Yellow (YELLOW) Urine Appearance Hazy (CLEAR,HAZY) Urine pH 6.0 (5.0-8.0) Urine Specific [place] 1.025 (1.003-1.035) Urine Protein Negativemg/dL (NEG,TRACE) Urine Glucose (UA) Negativemg/dL (NEGATIVE) Urine Ketones Negativemg/dL (NEGATIVE) Urine Occult Blood Negative (NEGATIVE) Urine Nitrite Negative (NEGATIVE) Urine Bilirubin Negative (NEGATIVE) Urine Urobilinogen Normalmg/dL (NORMAL) Urine Leukocyte Esterase Negative (NEGATIVE) Urine RBC 0-2/hpf (0-2) Urine WBC 0-5/hpf (0-5) Urine Epithelial Cells Occasional/hpf (NONE-MOD) Urine Crystals Amorphous urates (NONE Urine Bacteria None/hpf (NONE-FEW) Urine Hyaline Casts None/lpf (NONE) Urine Granular Casts None seen (NONE SEEN) Urine Waxy Casts None seen (NONE SEEN) Urine Red Blood Cell Casts None seen (NONE SEEN) Urine White Blood Cell Casts None seen (NONE SEEN) Urine Mucus None seen (None Seen) Urine Trichomonas None seen (NONE SEEN) Urine Yeast None (NONE SEEN) Urinalysis Comment Transitional epi Urine Culture Reflexed Not indicated White Blood Count 9.1th/mm3 (3.8-10.1) Red Blood Count 4.80mil/mm3 (3.90-5.20) Hemoglobin 12.2g/dL (12.0-15.6) Hematocrit 36.9% (35.0-46.0) Mean Corpuscular Volume 76.9fL (81-100) Mean Corpuscular Hemoglobin 25.4pg (27.0-35.0) Mean Corpuscular Hemoglobin Concent 33.1% (32.0-37.0) Red Cell Distribution Width 14.2% (12.3-15.4) Platelet Count 226bil/L (150-400) Neutrophils (%) (Auto) 81.6% (40-74) Lymphocytes (%) (Auto) 11.4% (14-46) Monocytes (%) (Auto) 6.7% (4-12) Eosinophils (%) (Auto) 0% (0-5) Basophils (%) (Auto) 0.1% (0-3) Result Diagram: 12/08/16 0605 General Appearance: Alert, Oriented X3, Cooperative, No Acute Distress Extremities: Distal Pulses Palpable, Warm, No Compartment Syndrom Noted, Tenderness/Swelling Noted Postop Sensory Motor: Distal Motor Intact, Movement in Toes SURGICAL WOUND : Wound Location/Description Perioperative dressing clean dry and intact however is loosened. Drain Location Body Site: Knee Incision General Appearance: No Direct Observation Wound Drainage Type: Hemovac Activity: Ambulate with PT (WBAT c FWW) Catheters: Urethral 2 Way Allen Assessment & Plan Impression POD#1 right TKA Problems: Plan Dr. Obrien has written an order to D/C allen POD#2 instead. Patient will take her diuretic as prescribed. Weightbearing: Weightbearing as tolerated from a walker DVT prophylaxis: Aspirin 81 mg twice a day 6 weeks Physical therapy for transfers, progressive ambulation, strengthening Wound care: Perioperative dressing will be changed to an island dressing tomorrow by PA Analgesia: Continue oral pain management as well as IV acetaminophen. Patient is on chronic narcotics at home and will likely need this additional medication. Discharge plan: Discharge home in 1-2 days. Start outpatient physical therapy next week. Follow-up plan: In 2 weeks at [facility] with PA for wound check and at [address] Obrien with x-rays Linn Davenport PA-C Dec 08, 2016 08:29
[2016-12-08] MEDS: Potassium Chloride 20 mEq SR Tablet PO SCH (09:16)
--- NOTE | 2016-12-08 09:25 | NUR ---
Social Work-initial assessment/readiness for discharge: Data:See initial assessment. Pt is a 66 y/o female who was admitted on 12/07/16 for right knee per H&P. Pt's insurance is [employer] and PCP is Dirk Herrera MD. EMR reviewed. RADHIKA met with pt to discuss discharge planning, SW role explained. Pt is alert and oriented x3. Pt resides at home with her son on [facility] where she remains independent with ADLS. 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 Pt drives and has a fww for home use. Pt has no HH or SNF history. Pt has no jail care insurance or VA benefits. SW discussed DPOA/ advanced directive, pt states she has not completed this and is not interested in any information. Pt already has outpt PT set up and PT has cleared pt for home with outpt PT services. Pt's friend to provide transport home at discharge. Pt to benefit from priority boarding pass at discharge. SW provided phone number and plan on white board in room. SW will continue to follow. Assessment:Pt who would benefit from outpt PT. Plan:Pt to discharge home when medically stable via POV. Pt has oupt PT services set up. Pt to benefit from priority boarding pass at discharge. RADHIKA will continue to follow. LORETO Munson Addendum: 12/08/16 at 0930 by CHITO DE LOS SANTOS SS Amended: Links added.
[2016-12-08 12:58] VITALS: BP 155/94; PULSE 64; RESP 18; O2SAT 98
[2016-12-08] MEDS: Ketorolac 15 mg/mL Inj IV PRN ×2 (17:01→23:01)
--- NOTE | 2016-12-08 17:38 | NUR ---
Hemovac Removal, Pain Hemovac removed per MD orders, patient tolerated removal well. Dressing in place at removal site. Patient reports some increasing pain this shift. [facility] intact, PA made aware, new orders received. Care is ongoing.
[2016-12-08 19:32] VITALS: BP 176/84; PULSE 65; RESP 18; O2SAT 98
--- NOTE | 2016-12-08 20:29 | PCM.ANEP1 ---
Post Anesthesia Phase 1 PACU Phase 1 Assessment Vital Signs Vital Signs Date Time Temp Pulse Resp B/P Pulse Ox O2 Delivery O2 Flow Rate FiO2 12/08/16 19:32 36.7 65 18 176/84 98 Room Air 12/08/16 16:04 Room Air 12/08/16 12:58 36.7 64 18 155/94 98 Room Air Anesthetic Administered: Regional Block, SAB Level of Alertness: Awake, talking GOMEZ's with Equal Strength: No (SPINAL ANESTHESIA IN EFFECT.) Pain: Yes Pain Scale Score: 9 Nausea or Vomiting: No Cardiovascular Function and Hy: Yes Oxygen Delivery: Simple Mask Lungs: Normal Air Movement Dermatome Level: L1,2 (Groin) Complications: No Liudmila Reid DO Dec 08, 2016 20:29
[2016-12-09] MEDS: Lactated Ringer's 1,000 ML IV SCH ×2 (00:15→16:55)
[2016-12-09] MEDS: hydrOXYzine Pamoate 25 mg Capsule PO PRN ×6 (00:44→20:30)
[2016-12-09] MEDS: Sodium Chloride LOK Flush 10 mL Syringe IV SCH ×4 (01:00→20:24)
--- NOTE | 2016-12-09 02:16 | NUR ---
Pain At start of shift, pt reporting 9.5/10 pain and increasing from earlier work with PT during the day. Pt has been receiving Oxycodone 10 mg and Vistaril 100mg q3 hrs, intermittently with 2 tabs of Percocet 5/325mg. Morphine 2mg IV being given q4 hrs and Tordal IV 15mg given Q6 hrs. Pt reporting pain finally down to 7/10 and "much better" per pt. Pt has been able to sleep for 40 min-1 hr at a time. Alert/oriented x4, Orthos intact, Infante patent and draining, SURENDRA wrap dressing to right knee is CDI. Continue close monitoring.
[2016-12-09] MEDS: oxyCODONE-Acetamin 5-325 mg Tablet PO PRN ×2 (02:47→05:48)
[2016-12-09] MEDS: Ketorolac 15 mg/mL Inj IV PRN (05:48)
[2016-12-09 06:06] VITALS: BP 168/74; PULSE 60; RESP 18; O2SAT 96
[2016-12-09] MEDS: Potassium Chloride 20 mEq SR Tablet PO SCH (09:04)
--- NOTE | 2016-12-09 10:53 | PCM.PNORTH ---
Subjective Date of Service: Dec 09, 2016 Visit Information: Reason for Visit Right Knee Arthritis Surgery/Surgery Date R TKA 12/07/16 Post-Op Day # Date of Admission: Dec 07, 2016 at 14:17 Hospital Day # Subjective Foundation awake and alert and sitting up in bed. No complaints of pain at this time. Patient did discuss a very difficult night last night where her pain was not well controlled. She is well controlled at this time and I have worked with patient's nurse to modify her medication regime to ensure pain control and discontinuing IV pain medications. Patient is very cognizant of these issues and has been using a significant amount of pain medication for very long time. Patient would like to be in-house long enough to ensure that her pain medication regime is controlling her well and I believe this is reasonable. Postop General: No Complaints, No Shortness of Breath, No Chest Pain Pain Management: PO, IV Push Objective Exam Objective Alert and oriented 3 and pleasant. Interoperative dressing is clean dry and intact. Interoperative dressings changed postop dressing with ABDs and fixation at an rewet of the Silverlon. Wound is in good condition Toe wiggle and sensation are intact right lower extremity distally Calf and thigh are soft and nontender Infante is present. Gait 35 feet yesterday on postop day #1.. Vital Signs and I/O Vital Sign - Last Date Time Temp Pulse Resp B/P Pulse Ox O2 Delivery O2 Flow Rate FiO2 12/09/16 06:06 36.5 60 18 168/74 96 Room Air Intake and Output 12/08/16 12/08/16 12/09/16 Cumulative From/Thru 15:00 23:00 07:00 12/02/16 11:29 - 12/09/16 06:07 Intake Total 700 ml 400 ml 5152 ml Output Total 1250 ml 800 ml 4155 ml Balance -550 ml -400 ml 997 ml Intake Oral 600 ml 400 ml 2700 ml IV Total 100 ml 2452 ml Output Urine Total 1150 ml 750 ml 3615 ml Stool Total 100 ml 50 ml 250 ml Drainage Total 240 ml Estimated Blood Loss 50 ml Result Diagram: 12/08/16 0605 General Appearance: Alert, Oriented X3, Cooperative, No Acute Distress Extremities: No Compartment Syndrom Noted, Thigh & Calf Soft/Nontender Postop Sensory Motor: Distal Motor Intact, Movement in Toes, Distal Sensation Intact SURGICAL WOUND : Drain Location Body Site: Knee Incision General Appearance: No Direct Observation Wound Drainage Type: Hemovac Activity: Ambulate with PT (weightbearing as tolerated on the right lower extremity using front wheeled walker) Catheters: Urethral 2 Way Infante Assessment & Plan Impression Patient is a very pleasant 66-year-old female who at baseline takes a significant amount of pain medications as well as anxiolytics and neuroleptics. She will likely be in-house for 1 more night and discharged on postop day 3 in order to workout her pain control regimen. Problems: Plan Postop day #2 from right total knee arthroplasty performed on 12/07/[address] Dileep Obrien. Weightbearing as tolerated on the right lower extremity using front wheeled walker. Continue formal physical therapy for mobility, gait and safety. Patient has arranged outpatient physical therapy to begin soon after discharge and formal physical therapy prescription is in chart. Continue by mouth pain medication with Percocet 10/325 mg 1-2 every 4 hours when necessary and Roxicodone 5-10 mg every 3 when necessary. Patient may also use her chronic dosing of hydroxyzine. Nursing please discontinue use of MS IV 2 mg and Toradol IV. Continue ASA 81 mg EC by mouth twice a day 6 weeks postop for DVT prophylaxis. Interoperative dressing is changed to postoperative dressing today and wound is found in good condition. Nursing please discontinue Infante today after first PT session. Follow-up in 2 weeks at [facility] orthopedic clinic on prearranged appointment with mid-level provider for wound check and suture removal. Follow-up in 6 weeks at [facility] orthopedic clinic on prearranged appointment with Dr. Dileep Obrien with 2 view right knee x-rays on arrival. Anticipate discharge to home on postoperative day #3 after pain control regimen is tested and working. VTE Prophylaxis: Other (ASA 81 mg EC by mouth twice a day 6 weeks postop for DVT prophylaxis.) Michael Luque PA-C Dec 09, 2016 10:53
[2016-12-09] MEDS: oxyCODONE-Acetamin 10-325 mg Tablet PO PRN ×2 (12:23→16:28)
[2016-12-09 13:44] VITALS: BP 140/77; PULSE 57; RESP 16; O2SAT 98
--- NOTE | 2016-12-09 18:31 | NUR ---
activity/pain Pt up and walked in [place] with PT today, Infante removed this afternoon, pt able to walk to bathroom with nursing to void. Pain better controlled today, Percocet order increased to 10/325 tablets like pt takes at home. Pt pain level remained about a 5/10 this shift which she states is tolerable for her. only one dose of morphine administered this shift for break through pain after physical therapy.
[2016-12-09 20:33] VITALS: BP 157/80; PULSE 63; RESP 18; O2SAT 100
[2016-12-10] MEDS: hydrOXYzine Pamoate 25 mg Capsule PO PRN ×5 (02:56→22:00)
[2016-12-10] MEDS: oxyCODONE-Acetamin 10-325 mg Tablet PO PRN ×5 (02:57→22:01)
--- NOTE | 2016-12-10 04:29 | NUR ---
Pain Pt. was in pain 05/25 around 0330. Pt. felt that Percocet 10/325 PO and Vistaril 100mg PO was ineffective for pain. Pain was getting worse. IV morphine given. Pt. is now back asleep. Will continue to monitor.
[2016-12-10 05:48] VITALS: BP 147/74; PULSE 67; RESP 20; O2SAT 95
[2016-12-10] MEDS: Potassium Chloride 20 mEq SR Tablet PO SCH (09:32)
[2016-12-10] MEDS: Lactated Ringer's 1,000 ML IV SCH (09:35)
[2016-12-10] MEDS: Sodium Chloride LOK Flush 10 mL Syringe IV SCH ×3 (09:35→20:05)
[2016-12-10 13:25] VITALS: BP 157/85; PULSE 65; RESP 18; O2SAT 97
--- NOTE | 2016-12-10 14:40 | PCM.PNORTH ---
Subjective Date of Service: Dec 10, 2016 Visit Information: Reason for Visit Right Knee Arthritis Surgery/Surgery Date R TKA 12/07/16 Post-Op Day # Date of Admission: Dec 07, 2016 at 14:17 Hospital Day # Subjective Status post day #3 right total knee arthroplasty. Patient has been very nervous about the thought of going home. She has a history of chronic narcotic use. Patient and nursing state that she had severe pain last night beginning at 8 PM. She had to take Percocet 10 mg, alternating with Roxicodone 10 mg tablets and was taking one of these every 2 hours for 6-8 hours, then they had to use IV morphine in order to control the pain and bring it down from a 10/10. Patient has been ambulating well, using the restroom on her own and eating well. Pain control not achieved. Postop General: No Complaints, No Shortness of Breath, No Chest Pain Pain Management: PO, IV Push Objective Exam Objective Patient is alert and oriented 3. Answering questions appropriately. Patient is sitting up in the bed and in mild acute distress today. Dressing is clean dry and intact. Calf is soft and nontender. Sensation and pulses intact, patient able to wiggle toes. Vital Signs and I/O Vital Sign - Last Date Time Temp Pulse Resp B/P Pulse Ox O2 Delivery O2 Flow Rate FiO2 12/10/16 13:25 36.6 65 18 157/85 97 Room Air Intake and Output 12/09/16 12/09/16 12/10/16 Cumulative From/Thru 15:00 23:00 07:00 12/02/16 11:29 - 12/10/16 06:17 Intake Total 720 ml 500 ml 6372 ml Output Total 150 ml 430 ml 4735 ml Balance 570 ml 70 ml 1637 ml Intake Oral 720 ml 500 ml 3920 ml IV Total 2452 ml Output Urine Total 100 ml 400 ml 4115 ml Stool Total 50 ml 30 ml 330 ml Drainage Total 240 ml Estimated Blood Loss 50 ml # Voids 1 1 # Bowel Movements 0 0 Result Diagram: 12/08/16 0605 SURGICAL WOUND : Drain Location Body Site: Knee Incision General Appearance: No Direct Observation Wound Drainage Type: Hemovac Activity: Ambulate with PT (weightbearing as tolerated on the right lower extremity using front wheeled walker) Catheters: Urethral 2 Way Infante Assessment & Plan Impression Status post day #3 right total knee arthroplasty. Patient doing well with therapy. Very poor pain control so far due to chronic narcotic use. Severe pain issues through the night with maximizing all narcotic use to a safe level. Patient finally needed IV medications. Not cleared for discharge to home due to lack of control with pain, not safe. Problems: Plan Weightbearing: Weightbearing as tolerated from a walker DVT prophylaxis: Aspirin 81 mg twice a day 6 weeks Physical therapy for transfers, progressive ambulation, strengthening Analgesia: Continue oral pain management. Current regimen will be to utilize Percocet 10/325, with additional Roxicodone 5-10 mg for breakthrough pain. Will discuss addition of Toradol as possible addition to Vistaril and narcotics for control. Patient is on chronic narcotics at home and will likely need this additional medication. Discharge plan: Discharge home hopefully tomorrow if we can control pain better through the night. Start outpatient physical therapy next week. Follow-up plan: In 2 weeks at [facility] with REGGIE and at [address] Obrien with x-rays VTE Prophylaxis: Other (ASA 81 mg EC by mouth twice a day 6 weeks postop for DVT prophylaxis.) Dawit Narayan PA-C Dec 10, 2016 14:40
--- NOTE | 2016-12-10 18:16 | NUR ---
Pain / Ambulation / Dsg change Pain controlled with 2 tabs Percocet Q4 as well as her baseline 100mg of Vistaril. Pt ambulating with steady gait, FWW. Changed right knee dressing. New Silverlon moistened with Steril NS. Placed over incision, ABD over that, stockinet to hold all in place. Educated pt regarding dsg changes as well. Care continues
[2016-12-10 20:10] VITALS: BP 137/75; PULSE 66; RESP 20; O2SAT 99
[2016-12-11] MEDS: hydrOXYzine Pamoate 25 mg Capsule PO PRN ×3 (02:11→11:09)
[2016-12-11] MEDS: oxyCODONE-Acetamin 10-325 mg Tablet PO PRN ×2 (02:12→11:10)
[2016-12-11] MEDS: Lactated Ringer's 1,000 ML IV SCH (02:15)
--- NOTE | 2016-12-11 03:51 | NUR ---
Pain Pt. has had so far a better night with pain. Pt. has rated pain 4/10 so far during shift, and reports Percocet PO and Vistaril PO being effective for pain. Will continue tot monitor.
[2016-12-11 05:38] VITALS: BP 154/79; RESP 20; O2SAT 100
[2016-12-11] MEDS: Potassium Chloride 20 mEq SR Tablet PO SCH (08:00)
[2016-12-11] MEDS: Sodium Chloride LOK Flush 10 mL Syringe IV SCH (08:54)
[2016-12-11 09:49] VITALS: BP 135/76; PULSE 62; RESP 18; O2SAT 95
--- NOTE | 2016-12-11 10:05 | NUR ---
Student Nurse Note Patient refused 0830 dose of Lasix and Potassium due to her discharge today. She states she doesn't "want to be trying to use the [place] The patient was educated on the importance of taking the medication and states that she will take the dose when she gets home.
--- NOTE | 2016-12-11 10:53 | PCM.PNORTH ---
Subjective Date of Service: Dec 11, 2016 Visit Information: Reason for Visit Right Knee Arthritis Surgery/Surgery Date R TKA 12/07/16 Post-Op Day # Date of Admission: Dec 07, 2016 at 14:17 Hospital Day # Subjective Status post day #4 right total knee arthroplasty. Patient states she feels dramatically better. Pain is very well controlled and is way more comfortable going home today and has not come close to 10 out of 10 pain as she did the night before. Has not really needed much for breakthrough either. Postop General: No Complaints, No Shortness of Breath, No Chest Pain Pain Management: PO, IV Push Objective Exam Objective Patient is alert and oriented 3. Answering questions appropriately. Patient is sitting up in the bed and not in acute distress today. Dressing is clean dry and intact. Calf is soft and nontender. Sensation and pulses intact, patient able to wiggle toes. Vital Signs and I/O Vital Sign - Last Date Time Temp Pulse Resp B/P Pulse Ox O2 Delivery O2 Flow Rate FiO2 12/11/16 09:49 36.7 62 18 135/76 95 Room Air Intake and Output 12/10/16 12/10/16 12/11/16 Cumulative From/Thru 15:00 23:00 07:00 12/02/16 11:29 - 12/11/16 06:10 Intake Total 960 ml 600 ml 7932 ml Output Total 1190 ml 950 ml 6875 ml Balance -230 ml -350 ml 1057 ml Intake Oral 960 ml 600 ml 5480 ml IV Total 2452 ml Output Urine Total 1100 ml 900 ml 6115 ml Stool Total 90 ml 50 ml 470 ml Drainage Total 240 ml Estimated Blood Loss 50 ml # Voids 1 # Bowel Movements 0 Result Diagram: 12/08/16 0605 SURGICAL WOUND : Drain Location Body Site: Knee Incision General Appearance: No Direct Observation Wound Drainage Type: Hemovac Activity: Ambulate with PT (weightbearing as tolerated on the right lower extremity using front wheeled walker) Catheters: Urethral 2 Way Infante Assessment & Plan Impression Status post day #4 right total knee arthroplasty. Patient doing very well, pain better controlled and patient will be safe to discharge to home. Problems: Plan Weightbearing: Weightbearing as tolerated from a walker DVT prophylaxis: Aspirin 81 mg twice a day 6 weeks Physical therapy for transfers, progressive ambulation, strengthening. Patient will continue outpatient physical therapy and work on range of motion. Analgesia: Patient will be discharged to home with a few prescriptions including : Percocet 10/325, with additional Roxicodone 5-10 mg for breakthrough pain. Patient will also utilize Vistaril at home for pain control as well. Patient will avoid soaking or submerging incision underwater. Please keep incision clean for 1 more day. We prefer this to stay covered and clean until your postoperative appointment. If this becomes wet or saturated you may change to a new dressing. Patient will be discharged to home today. Follow-up plan: In 2 weeks at [facility] with REGGIE and at [address] Obrien with x-rays VTE Prophylaxis: Other (ASA 81 mg EC by mouth twice a day 6 weeks postop for DVT prophylaxis.) Dawit Narayan PA-C Dec 11, 2016 10:53
--- NOTE | 2016-12-11 10:54 | PCM.DIORTH ---
Ortho Discharge Instruction Date of Service: Dec 11, 2016 Dates of Hospitalization Date of Hospital Admission Dec 07, 2016 at 14:17 Providers Admitting Physician: Dileep Obrien MD Primary Care Physician: Dirk Herrera MD Attending Physician: Dileep Obrien MD Diet Discharge Diet: No restrictions Activity Discharge Activity-General: Try not to overdue Right Lower Extremity: Weight Bearing as tolerated Discharge Assist Device: Front Wheeled Walker Additional Instructions Discharge Instructions Weightbearing: Weightbearing as tolerated from a walker DVT prophylaxis: Aspirin 81 mg twice a day 6 weeks Physical therapy for transfers, progressive ambulation, strengthening. Patient will continue outpatient physical therapy and work on range of motion. Analgesia: Patient will be discharged to home with a few prescriptions including : Percocet 10/325, with additional Roxicodone 5-10 mg for breakthrough pain. Patient will also utilize Vistaril at home for pain control as well. Patient will avoid soaking or submerging incision underwater. Please keep incision clean for 1 more day. We prefer this to stay covered and clean until your postoperative appointment. If this becomes wet or saturated you may change to a new dressing. Patient will be discharged to home today. Follow-up plan: In 2 weeks at [facility] with REGGIE and at [address] Obrien with x-rays Dawit Narayan PA-C Dec 11, 2016 10:54
--- NOTE | 2016-12-11 10:57 | PCM.DC.ORT ---
Discharge Summary Date of Service: Dec 11, 2016 Date of Hospital Admission: Dec 07, 2016 at 14:17 Date of Surgery: Dec 07, 2016 Date of Discharge: Dec 11, 2016 Reason for Hospitalization: Right knee osteoarthritis Procedures Performed: Right total knee arthroplasty Hospital Course: Patient presented to [facility] surgical suite for the procedure of right total knee arthroplasty by Dr Dileep Obrien on 12/07/2016. Patient was prepped for surgery and the procedure was performed successfully, patient was discharged to PACU under stable condition, tolerated the procedure well. Once stabilized in PACU and pain well controlled, patient was admitted to the hospital floor for observation, pain control, and progression with physical therapy. The first 1-2 days the patient was able to resume a regular diet, void on their own, not having any problems with nausea or vomiting. The patient did not have any adverse falls, reactions, or events were all in the hospital. The patient began working with physical therapy on day one then progressed quite well but has had a very difficult time with pain control. On day 3 the patient had had severe pain 10/10 which was very hard to control and had to receive IV morphine and was not safe to discharge on that day. She was kept overnight to continue to observe. On day 4 the patient was able to ambulate safely on their own, and pain was controlled sufficiently to be discharged to home with outpatient physical therapy. We will utilize aspirin 81 mg by mouth twice a day for 6 weeks for DVT prophylaxis. The patient was discharged to home under stable condition with plan to follow- up with patient at 2 weeks for a postoperative appointment. Diagnosis at Time of Discharge Status post right total knee arthroplasty. Chronic narcotic use. Problems: Orthopedic Follow up Plan: In Two Weeks in my clinic Discharge Instructions: Weightbearing: Weightbearing as tolerated from a walker DVT prophylaxis: Aspirin 81 mg twice a day 6 weeks Physical therapy for transfers, progressive ambulation, strengthening. Patient will continue outpatient physical therapy and work on range of motion. Analgesia: Patient will be discharged to home with a few prescriptions including : Percocet 10/325, with additional Roxicodone 5-10 mg for breakthrough pain. Patient will also utilize Vistaril at home for pain control as well. Patient will avoid soaking or submerging incision underwater. Please keep incision clean for 1 more day. We prefer this to stay covered and clean until your postoperative appointment. If this becomes wet or saturated you may change to a new dressing. Patient will be discharged to home today. Follow-up plan: In [address] [facility] with REGGIE and at [address] Obrien with x-rays ([chlorophyll]) 200 MG QID Furosemide (Furosemide) 80 Mg Tab 80 MG PO DAILY Gabapentin (Gabapentin) 100 Mg Capsule 300 MG PO HS Gabapentin (Gabapentin) 100 Mg Capsule 200 MG PO MORNING Hydroxyzine HCl (HydrOXYzine Hcl) 50 Mg Tablet 100 MG PO q3-6h PRN PRN For Itching Potassium Chloride ER (Potassium Chloride ER) 20 Meq Tablet.er 20 MEQ PO DAILY TAKE WITH FOOD Thyroid,Pork (Snyder Thyroid) 120 Mg Tablet 120 MG PO DAILY oxyCODONE-Acetaminophen 10-325 mg (oxyCODONE-Acetaminophen 10-325 mg) 1 Each Tablet 1-2 TABLET PO Q6H PRN PRN For Pain Dawit Narayan PA-C Dec 11, 2016 10:57
--- NOTE | 2016-12-11 11:04 | NUR ---
Social Work- Discharge Data: EMR reviewed. Pt is on day 4 of hospitalization for right knee arthritis. Pt to discharge today. PT is recommending outpt PT, pt has this set up. Pt to need priority boarding pass at discharge. Pt to discharge home via POV, pursue outpt PT. No discharge needs. Assessment: Pt who will receive outpt PT at discharge . Plan: Pt to follow up with outpt PT. Pt to discharge via POV, priority boarding pass provided. No discharge needs. LORETO Sandoval
--- NOTE | 2016-12-11 13:52 | NUR ---
Student Nurse Note Discharge Discharge instructions reviewed with patient, patient understands. Patient's prescriptions sent with friend to be filled at outpatient pharmacy per patient request. All belongings with patient. Per patient no further questions. Patient transported via wheelchair to ride home with friend. Care discontinued.
== END 2016-12-11 13:40 | disposition home or self-care (01) | DRG 470 ==
LOC: SAS 09:11 → OSC 14:17
PROVIDERS: ADMIT Orthopaedic Surgery; ATTEND Orthopaedic Surgery
PROC: 0SRC0J9 Replacement of Right Knee Joint with Synthetic Substitute, Cemented, Open Approach (ICD-10-PCS; principal; 2016-12-07 10:45)
DX: M17.11 Unilateral primary osteoarthritis, right knee (principal); I10 Essential (primary) hypertension; Z87.891 Personal history of nicotine dependence; R60.9 Edema, unspecified; Z96.652 Presence of left artificial knee joint